=== PATIENT | male | born 1950 | race Caucasian/White ===

== ENCOUNTER 2017-06-20 08:50 | Outpatient (CLI) | payer MEDICARE, OTHER ==
--- NOTE | 2017-06-20 11:29 | CT ---
CT ANGIO CHEST WITH AND WITHOUT CONTRAST: HISTORY: Exam is performed for coronary mapping and for preoperative evaluation prior to Watchman procedure. TECHNIQUE: Multiple axial tomograms obtained through the chest with attention to the heart pre and post IV cont rast. This is not a coronary artery angio study. FINDINGS: The coronary arteries have a normal origin. The right coronary is very small on this study. The left main extends over a length of approximately 1.2 cm. There is calcification in the proximal LAD and extending through the mid and distal LAD. Calcified plaque is also seen in the proximal ci rcumflex. Assessment of coronary stenosis cannot be made on this study. There is increased density seen in the left atrial appendage. Left atrial appendage densities are r ecorded at 101 Hounsfield units, and the density of the left atrium is recorded at 53 Hounsfield uni ts. This would suggest thrombus within the left atrial appendage. The aortic measurements are normal. The aortic root, at the sinus of Valsalva, is measured at 3.7 c m. The ascending aorta is measured at 3.3 cm. The pulmonary arteries are poorly opacified on this exam. I cannot exclude pulmonary emboli on this study. The visualized lung sheridan reveal a 3 to 4 mm nodule in the right apex. There are two or three smal l nodules in the right upper lobe, peripherally, measuring in the 3 mm range. Small, pleural-based calcified nodule in the left upper lobe, measuring in the 3 mm range. Mild pleural thickening. No adenopathy. There are calcified right hilar lymph nodes. IMPRESSION: 1. Increased density of the left atrial appendage suggests thrombus. 2. Coronary artery calcifications, as described above. Very small right coronary artery. 3. Calcified hilar lymph nodes and small pleural-based calcified granuloma on the left. This is in dicative of a prior granulomatous process. 4. There are other noncalcified small nodules seen in the right upper lobe, as described. Mild ple ural thickening and parenchymal scarring posteriorly, in the right lung base. POS: [facility]
[2017-06-20] MEDS ORDERED: Iopamidol 370 76% 100 ML VIAL ONE (15:59)
== END 2017-06-20 08:51 | disposition home or self-care (01) ==
LOC: CT 08:50
PROVIDERS: ATTEND Internal Medicine Cardiovascular Disease
DX: I48.0 Paroxysmal atrial fibrillation (principal); R91.8 Other nonspecific abnormal finding of lung field
CPT/HCPCS: 71275

== ENCOUNTER → 2017-08-29 | Day surgery (SDC) | payer MEDICARE, OTHER ==
[2017-08-28 14:10] VITALS: BMI 32.6
[~2017-08-29] MED LIST: Diprivan 40 ML ONE; Lidocaine 1% PF 5 ML VIAL ONE
--- NOTE | 2017-08-29 13:30 | ECHO ---
TRANSESOPHAGEAL ECHOCARDIOGRAM: DATE OF PROCEDURE: 08/29/17 INDICATION: Paroxysmal atrial fibrillation. DESCRIPTION OF PROCEDURE: The patient was taken to the PACU. The patient was sedated by anesthesiology. A transesophageal probe was placed in the distal esophagus and stomach. Echocardiographic images were obtained. The transesophageal probe was removed. FINDINGS: 1. Normal left ventricular systolic function. 2. Left ventricle not dilated. 3. Mild left atrial enlargement. 4. Normal mitral and aortic valves. 5. Moderate mitral regurgitation. 6. Mild tricuspid regurgitation. 7. The Lariat device is well positioned in the left atrial appendage, with noted 1 mm leak 8. Atherosclerotic debris in the descending aorta. IMPRESSION: Well positioned Lariat device with a very small 1 mm leak noted.
== END ==
LOC: CCL 06:00
PROVIDERS: ATTEND Internal Medicine Cardiovascular Disease
DX: I48.0 Paroxysmal atrial fibrillation (principal); G47.33 Obstructive sleep apnea (adult) (pediatric); I10 Essential (primary) hypertension; E03.9 Hypothyroidism, unspecified; I25.10 Atherosclerotic heart disease of native coronary artery without angina pectoris; K21.9 Gastro-esophageal reflux disease without esophagitis; K04.7 Periapical abscess without sinus; I34.0 Nonrheumatic mitral (valve) insufficiency; I07.1 Rheumatic tricuspid insufficiency; Z85.528 Personal history of other malignant neoplasm of kidney; Z79.899 Other long term (current) drug therapy; Z79.82 Long term (current) use of aspirin; Z88.1 Allergy status to other antibiotic agents; Z90.5 Acquired absence of kidney; Z95.0 Presence of cardiac pacemaker; Z98.890 Other specified postprocedural states; Z99.89 Dependence on other enabling machines and devices
CPT/HCPCS: 93005; 93010; 93312; J2001; J2704

== ENCOUNTER 2017-09-06 20:23 | Emergency (ER) | payer MEDICARE, OTHER ==
[2017-09-06 21:18] LABS: #Basophils 0.1 thou/uL (0.0-0.2); #Eosinphils 0.6 thou/uL (0.0-0.7); #Lymphocytes 1.2 thou/uL (1.20-3.40); #Monocytes 0.6 thou/uL (0.11-0.59); #Neutrophils 4.6 thou/uL (1.40-6.50); %Basophils 0.9 % (0.0-1.0); %Eosinophils 8.2 % (0.0-10.0); %Lymphocytes 16.4 % (21.0-51.0); %Monocytes 8.7 % (0.0-10.0); %Neutrophils 65.8 % (42.0-75.0); Hemoglobin 14.2 g/dL (14.0-18.0); Mean Corpuscular Hemoglobin 26.9 pg (27.0-31.0); Mean Corpuscular Volume 79.2 fl (80.0-94.0); Mean Platelet Volume 7.4 fL (7.4-10.4); Platelet Count 200 thou/uL (130-400); RBC Distribution Width 14.3 % (11.5-14.5); Red Blood Cell (RBC) Count 5.29 mill/uL (4.70-6.10)
[2017-09-06 21:39] LABS: ALT (SGPT) 11 U/L (8-55); AST (SGOT) 14 U/L (5-34); Albumin 4.1 g/dL (3.4-4.8); Alkaline Phosphatase 102 U/L (40-150); Anion Gap 14 mmol/L (10-20); BUN (Urea Nitrogen) 15 mg/dL (8.4-25.7); Bilirubin, Total 0.4 mg/dL (0.2-1.2); Calc. Creatinine Clearance 0 mL/min (70-130); Calcium 9.4 mg/dL (7.8-10.44); Carbon Dioxide 20 mmol/L (23-31); Chloride 97 mmol/L (98-107); Estimated GFR-MDRD 50; Globulin 2.4 g/dL (2.4-3.5); Glucose 95 mg/dL (80-115); Potassium 3.6 mmol/L (3.5-5.1); Protein, Total 6.5 g/dL (5.8-8.1); Sodium 127 mmol/L (136-145)
[2017-09-06 21:42] LABS: CKMB 2.4 ng/mL (0-6.6); Troponin I 0.019 ng/mL (< 0.028)
--- NOTE | 2017-09-22 14:14 | EKG ---
Test Reason : Blood Pressure : / mmHG Vent. Rate : 061 BPM Atrial Rate : 086 BPM P-R Int : 000 ms QRS Dur : 102 ms QT Int : 442 ms P-R-T Axes : 000 059 072 degrees QTc Int : 444 ms Atrial-paced rhythm with prolonged AV conduction Abnormal ECG Confirmed by MORALES DAMON, ALANNA ([id number]), purchasing expeditor MEGHAN ALCOCER ([id number]) on 09/22/2017 2:13:51 PM Referred By: Confirmed By:ALANNA NIELSEN MD
== END 2017-09-06 22:55 | disposition home or self-care (01) ==
LOC: ERS 20:23
DX: I49.3 Ventricular premature depolarization (principal); E87.1 Hypo-osmolality and hyponatremia; I11.0 Hypertensive heart disease with heart failure; I50.9 Heart failure, unspecified; I48.91 Unspecified atrial fibrillation; M10.9 Gout, unspecified; G47.30 Sleep apnea, unspecified; E03.9 Hypothyroidism, unspecified; E78.5 Hyperlipidemia, unspecified; Z79.82 Long term (current) use of aspirin; Z79.01 Long term (current) use of anticoagulants; Z85.528 Personal history of other malignant neoplasm of kidney; Z79.899 Other long term (current) drug therapy
CPT/HCPCS: 36415; 80053; 82553; 84484; 85025; 93005; 96360

== ENCOUNTER 2017-10-17 14:43 | Outpatient (CLI) | payer MEDICARE, OTHER ==
--- NOTE | 2017-10-17 15:37 | RAD ---
TWO VIEWS RIGHT KNEE 10/17/17 HISTORY: Right knee pain. FINDINGS: There is tricompartment osteophytosis. There is no significant joint space narrowing appreciated. No fracture or dislocation is identified. Vascular calcifications are seen posterior to the knee. IMPRESSION: 1. Osteoarthritis without acute osseous abnormality. No fracture or dislocation is seen. 2. Prominent vascular calcifications. POS: [facility]
== END 2017-10-17 14:44 | disposition home or self-care (01) ==
LOC: RAD 14:43
PROVIDERS: ATTEND Internal Medicine
DX: M25.561 Pain in right knee (principal); M17.11 Unilateral primary osteoarthritis, right knee

== ENCOUNTER 2017-12-25 07:52 | Outpatient (CLI) | payer MEDICARE, OTHER | END 2017-12-25 07:53 | disposition home or self-care (01) | LOC: BICMAMMO 07:52 | PROVIDERS: ATTEND Internal Medicine Rheumatology | DX: Z13.820 Encounter for screening for osteoporosis (principal); M85.852 Other specified disorders of bone density and structure, left thigh; M85.851 Other specified disorders of bone density and structure, right thigh | CPT/HCPCS: 77080 ==

== ENCOUNTER 2017-12-25 11:21 | Outpatient (CLI) | payer MEDICARE, OTHER ==
--- NOTE | 2017-12-25 15:37 | MRI ---
MR OF THE RIGHT KNEE WITHOUT CONTRAST 12/25/17 INDICATION: Right knee pain for six months with pain while walking. COMPARISON: None. TECHNIQUE: Multiplanar and multisequence MR images were obtained of the right knee without IV contrast. The christ ent reportedly had a [employer] Advisa pacemaker. FINDINGS: There is severe chondrosis involving the medial femorotibial joint compartment with multiple areas of subchondral cyst formation. There is a prominent amount of subchondral edema involving the anterior aspect of the medial tibial plateau. There are small marginal osteophytes affecting all major compart ments. The ACL, PCL, MCL, and LCLC are intact. The extensor mechanism is intact. There is a small semimembra nosus - medial gastrocnemius popliteal cyst. The medial and lateral menisci are intact. There is inc reased intrinsic T2 signal in the medial meniscus body. IMPRESSION: 1. Mild to moderate osteoarthrosis with prominent subchondral edema involving the medial tibial plateau likely related to areas of full thickness articular cartilage thinning and reactive edema. No visible fracture line is grossly evident. 2. Mucoid degeneration of the medial meniscus. POS: [facility]
== END 2017-12-25 11:22 | disposition home or self-care (01) ==
LOC: MRI 11:21
PROVIDERS: ATTEND Internal Medicine
DX: M25.561 Pain in right knee (principal); M17.11 Unilateral primary osteoarthritis, right knee

== ENCOUNTER 2018-01-03 06:03 | Day surgery (SDC) | payer MEDICARE, OTHER ==
[2018-01-02 10:08] VITALS: BMI 31.9
[2018-01-03 07:03] LABS: #Eosinphils 0.3 thou/uL (0.0-0.7); #Lymphocytes 0.7 thou/uL (1.20-3.40); #Monocytes 0.5 thou/uL (0.11-0.59); %Basophils 0.5 % (0.0-1.0); %Eosinophils 5.9 % (0.0-10.0); %Lymphocytes 13.1 % (21.0-51.0); %Monocytes 8.8 % (0.0-10.0); %Neutrophils 71.7 % (42.0-75.0); Hemoglobin 13.1 g/dL (14.0-18.0); Mean Corpuscular HGB CONC 34.4 g/dL (32.0-36.0); Mean Corpuscular Hemoglobin 28.3 pg (27.0-31.0); Mean Corpuscular Volume 82.3 fl (80.0-94.0); Mean Platelet Volume 6.7 fL (7.4-10.4); Platelet Count 161 thou/uL (130-400); RBC Distribution Width 13.2 % (11.5-14.5); Red Blood Cell (RBC) Count 4.62 mill/uL (4.70-6.10); White Blood Cell (WBC) Count 5.6 thou/uL (4.8-10.8)
[2018-01-03 07:18] LABS: PTT 27.5 SEC (22.9-36.1); Prothrombin Time 12.9 SEC (12.0-14.7)
[2018-01-03 07:24] LABS: Anion Gap 15 mmol/L (10-20); BUN (Urea Nitrogen) 15 mg/dL (8.4-25.7); Calc. Creatinine Clearance 68 mL/min (70-130); Calcium 8.6 mg/dL (7.8-10.44); Carbon Dioxide 19 mmol/L (23-31); Chloride 98 mmol/L (98-107); Estimated GFR-MDRD 51; Glucose 101 mg/dL (80-115); Potassium 3.5 mmol/L (3.5-5.1); Sodium 128 mmol/L (136-145)
[2018-01-03] MEDS ORDERED: PROPOFOL 40 ML ONE (07:44)
[2018-01-03] MEDS ORDERED: PROPOFOL 200 MG/20 ML VIAL ONE (09:42)
--- NOTE | 2018-01-03 16:41 | ECHO ---
67-year-old gentleman with paroxysmal atrial fibrillation and status post a Lariat procedure. DESCRIPTION OF PROCEDURE: The patient was taken to PACU. The patient stated by anesthesiology. Transesophageal probe was place d in the distal esophagus and stomach. Echocardiographic images were obtained the transesophageal pr obe was removed. FINDINGS: 1. Normal left ventricular systolic function. 2. Left atrial enlargement. 3. Normal mitral and aortic valves. 4. Moderate mitral regurgitation. 5. Mild tricuspid regurgitation. 6. Trivial aortic. 7. The Lariat procedure is sealed with no significant leak noted. 8. Atherosclerotic debris in the aorta. IMPRESSION: Lariat device which appears to be well sealed with no significant leak.
== END 2018-01-03 09:25 | disposition home or self-care (01) ==
LOC: CCL 06:03
PROVIDERS: ATTEND Internal Medicine Cardiovascular Disease
DX: I48.91 Unspecified atrial fibrillation (principal); R55 Syncope and collapse; R53.81 Other malaise; I13.10 Hypertensive heart and chronic kidney disease without heart failure, with stage 1 through stage 4 chronic kidney disease, or unspecified chronic kidney disease; E78.00 Pure hypercholesterolemia, unspecified; E11.22 Type 2 diabetes mellitus with diabetic chronic kidney disease; I87.2 Venous insufficiency (chronic) (peripheral); I28.8 Other diseases of pulmonary vessels; I74.3 Embolism and thrombosis of arteries of the lower extremities; N18.3 Chronic kidney disease, stage 3 (moderate); Z98.890 Other specified postprocedural states; Z95.0 Presence of cardiac pacemaker; Z79.82 Long term (current) use of aspirin; Z79.899 Other long term (current) drug therapy
CPT/HCPCS: 36415; 80048; 85025; 85610; 85730; 93005; 93010; 93312; J2704

== ENCOUNTER 2018-02-05 07:49 | Outpatient (CLI) | payer MEDICARE, OTHER ==
--- NOTE | 2018-02-05 10:55 | CT ---
CT OF TEMPORAL BONES: Date: 02-05-18 Comparison: None. History: Otitis externa, history of external auditory canal surgery, January 2017 for CSF leak. The christ ent reports pain and drainage. Technique: Serial axial CT imaging obtained at 0.63 mm intervals through the temporal bones without c ontrast. Coronal reformatted imaging obtained. FINDINGS: The imaged brain parenchyma appears grossly unremarkable. There is atherosclerotic calcification of t he cavernous carotid arteries. Imaged paranasal sinuses appear well aerated. Patient appears status p ost bilateral paranasal sinus surgery, incompletely characterized on this examination. Left temporal bone: The internal auditory canal, cochlea, vestibule, vestibular aqua duct, and vesicu lar canals appear unremarkable. Course of the facial nerve is normal. Mastoid air cells and tympanic cavity is well aerated. External auditory canal grossly unremarkable. Prussak's space appears clear. The scutum appears sharp with no evidence for scutal erosion. Ossicles appear intact. Vascular foramina appear grossly unremarkable. No discrete focus of dehiscense seen. Right temporal bone: The internal auditory canal, cochlea, vestibule, vestibular aqua duct, and semic ircular canals appear unremarkable. There is evidence of prior mastectomy. There is small volume fluid in the mastoid bowl with opacified mastoid air cells noted inferiorly. There is also gas within the mastoid bulb. There is osseous erosion involving the interior aspect of the mastoid air cells/posterior osseous ext ernal auditory canal. This focal area of posterior osseous external auditory canal erosion/dehiscense measures 3 mm in transverse dimension as is seen on axial image 41. There is near complete opacification of the hypotympanum, the mesotympanum, and the epitympanum with soft tissue density filling the facial nerve recess and sinus tympanum on either side of the parietal eminence. No definite scutal erosion seen. Prussak's space is opacified. The tympanic membrane appears retracted. No obvious ossicular erosion is seen. On the coronal imaging there are a few foci concerning for osseous dehiscense. This includes the ante rior aspect of the tegmen tympani on coronal image 117 measuring 1-2 mm in transverse dimension. Ther e may be areas of dehiscense involving the posterior aspect of the epitympanum along the ventral aspe ct of the superior margin of the mastoid air cells best seen on coronal image 107 measuring 3-4 mm in transverse dimension. In addition, there is marked thinning of the bone with possible dehiscense inv olving the tegmen mastoideum on coronal image 101 measuring 6 mm in transverse dimension. Vascular fo ramina appear grossly unremarkable. IMPRESSION: 1. Grossly unremarkable left temporal bone. 2. Evidence of mastoidectomy on the right. There is gas and fluid within the mastoid bowel. There are areas concerning for osseous dehiscense involving the posterior osseous wall of the tax auditor y canal as well as the region of the tegmen mastoideum and tegmen tympani. There is nonspecific soft tissue nearly completely opacifying the hypotympanum, epitympanum, and mesotympanum. This could be in flammatory/infectious in nature or could be related to cholesteatoma. However, no scutal erosion or o ssicular erosion is seen. POS: [facility]
== END 2018-02-05 07:50 | disposition home or self-care (01) ==
LOC: CT 07:49
PROVIDERS: ATTEND Specialist
DX: H60.90 Unspecified otitis externa, unspecified ear (principal); R93.0 Abnormal findings on diagnostic imaging of skull and head, not elsewhere classified; Z98.890 Other specified postprocedural states
CPT/HCPCS: 70480

== ENCOUNTER 2018-06-20 09:37 | Outpatient (CLI) | payer MEDICARE, OTHER ==
--- NOTE | 2018-06-20 11:42 | RAD ---
RIGHT HIP TWO VIEWS: HISTORY: Right hip pain. FINDINGS: Mild degenerative changes are present. No fracture, dislocation, or bony destruction is identified. There are vascular calcifications. POS: [facility]
== END 2018-06-20 09:38 | disposition home or self-care (01) ==
LOC: BICRAD 09:37
PROVIDERS: ATTEND Physician Assistant
DX: M25.551 Pain in right hip (principal); M16.11 Unilateral primary osteoarthritis, right hip; M25.851 Other specified joint disorders, right hip
CPT/HCPCS: 36415; 80053; 80061; 84443

== ENCOUNTER 2018-10-16 15:52 | Outpatient (CLI) | payer MEDICARE, OTHER ==
--- NOTE | 2018-10-16 16:43 | RAD ---
RIGHT HAND 3 VIEWS: Date: 10/16/18 HISTORY: Hand pain. FINDINGS: There are moderate osteoarthritic changes of the hand. There are degenerative changes of the distal i nterphalangeal joints, as well as metacarpophalangeal joints, and marked osteoarthritic change of the first carpometacarpal joint space and radiocarpal joint. There are also fairly extensive vascular ca lcifications. IMPRESSION: 1. Moderately severe osteoarthritic changes of the hand and wrist. 2. Atherosclerosis. POS: [facility]
--- NOTE | 2018-10-16 17:04 | RAD ---
CERVICAL SPINE SERIES 3 VIEWS: Date: 10/16/18 HISTORY: Neck pain, numbness and tingling in both arms. FINDINGS: Vertebral bodies are normal in height. There are degenerative osteophytes without significant disc na rrowing. Moderate degenerative facet changes are seen. No soft tissue swelling. Carotid bulb calcific ations are present. IMPRESSION: Moderate arthritic changes of the spine. Changes are more pronounced in the facet region. POS: [facility]
--- NOTE | 2018-10-16 17:07 | RAD ---
RIGHT SHOULDER THREE VIEWS: HISTORY: Pain. COMPARISON: None. FINDINGS: The glenohumeral joint space is preserved. No fracture or dislocation. There is mild sclerosis of t he greater tuberosity. Correlate for rotator cuff tendinopathy. IMPRESSION: No fracture or dislocation. POS: [facility]
--- NOTE | 2018-10-16 17:07 | RAD ---
LEFT HAND 3 VIEWS: Date: 10/16/18 HISTORY: Hand pain, no injury. FINDINGS: There are fairly extensive vascular calcifications noted. There are osteoarthritic type changes of th e hand. Changes are related to the first carpometacarpal joint, triscaphe, and radiocarpal joint spac es. There are also some very mild changes of the interphalangeal joints and metacarpophalangeal joint s, most marked at the third metacarpophalangeal joint. IMPRESSION: 1. Osteoarthritic changes of the hand and wrist. Changes are most pronounced in the wrist region. 2. Extensive atherosclerosis. POS: [facility]
--- NOTE | 2018-10-16 17:08 | RAD ---
LEFT SHOULDER THREE VIEWS: 10/16/18 HISTORY: Left shoulder pain. Pacer device is present. Minimal arthritic changes of the shoulder are noted. There is some subchondr al bony change of the greater tuberosity. There is no signs of fracture IMPRESSION: Minimal arthritic changes of the shoulder. POS: [facility]
== END 2018-10-16 15:53 | disposition home or self-care (01) ==
LOC: BICRAD 15:52
PROVIDERS: ATTEND Internal Medicine
DX: M25.542 Pain in joints of left hand (principal); M25.512 Pain in left shoulder; M25.511 Pain in right shoulder; M25.541 Pain in joints of right hand; M54.2 Cervicalgia; M19.012 Primary osteoarthritis, left shoulder; M19.032 Primary osteoarthritis, left wrist; M19.031 Primary osteoarthritis, right wrist; M19.042 Primary osteoarthritis, left hand; M19.041 Primary osteoarthritis, right hand; I70.90 Unspecified atherosclerosis; M47.812 Spondylosis without myelopathy or radiculopathy, cervical region
CPT/HCPCS: 72040

== ENCOUNTER 2018-11-28 13:32 | Outpatient (CLI) | payer MEDICARE, OTHER ==
--- NOTE | 2018-11-28 14:13 | CT ---
Temporal bone CT. HISTORY: Eustachian tube dysfunction. Axial images were obtained with coronal reconstructions. Comparison made to previous exam from 02/05/2018. The left external auditory canal is unremarkable. The left hypo-, AP and mesotympanum is unremarkable. The left middle ear ossicles intact. No evidence of left middle ear soft tissue thickening or abnormality seen. The left cochlea, vestibule and semicircular canals are intact. Left mastoid air cells well aerated. The patient's had right-sided mastoidectomy. There is surgical resection of the right posterior aspec t of the external auditory canal. Surgical packing seen in the right mastoid region. There is thickening of the right tympanic membrane. The right malleus, incus and stapes are unremarka ble. No evidence of canalicular erosion seen in the right facial nerve canal. The right scutum is unremarkable. The right and left jugular bulbs are unremarkable. IMPRESSION: Right posterior external auditory canal surgical changes and decompression of the anterio r aspect of the right mastoid air cells. Soft tissues seen previously in the right ap and meso tympanum is no longer visible. The right middle ear at this time as well aerated.
== END 2018-11-28 13:33 | disposition home or self-care (01) ==
LOC: BICCT 13:32
PROVIDERS: ATTEND Otolaryngology Otology & Neurotology
DX: H69.80 Other specified disorders of Eustachian tube, unspecified ear (principal); Z98.890 Other specified postprocedural states
CPT/HCPCS: 70480

== ENCOUNTER 2018-12-30 09:25 | Outpatient (CLI) | payer MEDICARE, OTHER ==
[2018-12-30] MEDS ORDERED: Sodium Chloride 0.9% (PF) 10 ML VIAL ONE (10:00)
[2018-12-30] MEDS ORDERED: Lidocaine 1% PF 10 ML AMP ONE (10:00)
[2018-12-30] MEDS ORDERED: Iopamidol 300 61% 50 ML VIAL FS ONE (10:00)
[2018-12-30] MEDS ORDERED: EPINEPHrine 1 MG/ML AMP ONE (10:00)
--- NOTE | 2018-12-30 10:29 | CT ---
CT Cervical Spine WO Con History: [M 25.511 cervical stenosis] Comparison: None. Findings: Lung apices are clear. Paraspinal soft tissues are unremarkable. Dense calcifications of th e carotid bulbs. Relative atrophy of the left lobe of the thyroid. There is narrowing of the atlantodental interval. The occipital condyles are intact. No acute fractur e or malalignment. Levels are as follows: C2/C3: Moderate left facet arthropathy. Mild uncinate process hypertrophy. No significant neural fora ny or spinal canal narrowing. C3/C4: Mild degenerative disc space height loss. Some low-grade circumferential disc bulge. Moderate bilateral facet arthrosis. Mild left neural foraminal narrowing. C4/C5: Moderate to severe left facet arthropathy. Degenerative 1 mm anterolisthesis. Low-grade circum ferential disc bulge. Mild left neural foraminal narrowing. C5/C6: Low-grade uncinate process hypertrophy. Moderate to severe left facet arthrosis. No significan t neural foraminal or spinal canal narrowing. C6/C7: Mild uncinate process hypertrophy. Moderate left facet arthropathy. No significant neural fora ny or spinal canal narrowing. Impression: Moderate degenerative changes. No spinal canal narrowing appreciated.
--- NOTE | 2018-12-30 11:52 | RAD ---
LEFT SHOULDER ARTHROGRAM WITH FLUOROSCOPIC GUIDANCE: HISTORY: Left shoulder pain. EXPOSURE: 0.8 minutes. 95.1 microgray per m2 FINDINGS: Three view left shoulder fabric cutter radiograph does not demonstrate any fracture-dislocation. Erosive andres nges of the greater tuberosity are noted. Incompletely evaluated left-sided transvenous pacing device. Successful administration of contrast into the left shoulder. A total of 15 cc of Isovue-M 300 contr ast was administered into the joint space. No immediate or postprocedural complications. TECHNIQUE: Consent obtained to perform a left shoulder arthrogram with fluoroscopic guidance. The left shoulder was prepped and draped in sterile fashion, and 1% lidocaine, buffered with sodium bicarbonate, was used for local anesthesia. Under fluoroscopic guidance, a 22-gauge spinal needle was advanced into t he left shoulder joint space. A total of 15 cc of contrast was administered. No immediate or postprocedure complications. IMPRESSION: Successful left shoulder arthrogram. Transcribed Date/Time: 12/30/2018 12:40 PM
--- NOTE | 2018-12-30 11:55 | RAD ---
RIGHT SHOULDER ARTHROGRAM WITH FLUOROSCOPY: HISTORY: Right shoulder pain. EXPOSURE: 0.8 minutes. 146.6 microgray per m2. FINDINGS: Three view right shoulder asian art curator radiograph demonstrates a cephalad location of the humeral head, with respect to the glenoid, suggesting a complete rotator cuff tear. No evidence of fracture. Successful right shoulder arthrogram with fluoroscopic guidance. A total of 15 cc of Isovue 300 cont rast was administered into the joint space. No immediate or postprocedure complications. TECHNIQUE: Consent obtained to perform a right shoulder arthrogram. The right shoulder was prepped and draped i n a sterile fashion, and 1% lidocaine, buffered with sodium bicarbonate, was used for local anesthesia. Under fluoroscopic guidance, a 22-gauge spinal needle was advanced into the right should er joint space. A total of 15 cc of contrast was administered. No immediate or post procedure complications. IMPRESSION: Successful right shoulder arthrogram. Transcribed Date/Time: 12/30/2018 12:44 PM
--- NOTE | 2018-12-30 12:05 | CT ---
CT Upper Ext Rt W Con History: [Shoulder pain. M 54.12. M 25.511.] Comparison: Radiograph October 16, 2018 Findings: Biceps tendon: There is absent biceps tendon with empty bicipital groove. Small stump of fiber of the intra-articular tendon. Rotator cuff: Full-thickness full width supraspinatus and infraspinatus tendon tears. There is also f ull-thickness rupture of the craniad one half fibers of the subscapularis. Labrum: Loss of volume of the anterior and superior labrum. Bones: No fracture. No malalignment. Moderate degenerative disease of the acromioclavicular joint. Th ere is extension of intraarticular contrast into the acromioclavicular joint. Impression: 1. Full-thickness full width supraspinatus and infraspinous tendon ruptures with retraction of the te ndon medial to the glenoid. 2. Full-thickness rupture subscapularis craniad one half fibers. 3. Ruptured biceps tendon. 4. Communication of the glenohumeral joint with the acromioclavicular joint.
--- NOTE | 2018-12-30 12:10 | CT ---
CT Upper Ext Lt W Con History: [Pain. And 25.511. M 25.512.] Comparison: Shoulder radiograph September 2018 Findings: Partially calcified pleural nodule left upper lobe likely benign. There appears to be occlu ding device the left atrial appendage. Biceps tendon: There is interstitial type tearing of the extra articular and intra-articular biceps t endon. Rotator cuff: Full-thickness full width supraspinatus tendon tear from the footprint retracted to the mid humeral head. Moderate tendinosis supraspinatus tendon without full-thickness rupture. Labrum: Tear of the posterior labrum. Bones: No acute fracture or malalignment. Moderate degenerative disease acromio clavicular joint. Soft tissues: Numerous bodies within the subacromial/subdeltoid bursa. Muscles: Greater than 50% atrophy of the supraspinous muscle. Impression: 1. Full-thickness full width supraspinatus tendon tear from the footprint retracted to the mid unique l head present 2. Numerous bodies within the subacromial/subdeltoid bursa. 3. Likely posterior labral tearing. 4. Greater than 50% atrophy of the supraspinatus muscle. Deltoid musculature is intact. Fibroid interstitial type tearing of the extricate their and intra-articular biceps tendon.
== END 2018-12-30 09:26 | disposition home or self-care (01) ==
LOC: CT 09:25
PROVIDERS: ATTEND Orthopaedic Surgery Hand Surgery
DX: M25.511 Pain in right shoulder (principal); M25.512 Pain in left shoulder; M48.02 Spinal stenosis, cervical region; M75.102 Unspecified rotator cuff tear or rupture of left shoulder, not specified as traumatic; M75.101 Unspecified rotator cuff tear or rupture of right shoulder, not specified as traumatic; S43.491A Other sprain of right shoulder joint, initial encounter; M19.011 Primary osteoarthritis, right shoulder; M47.812 Spondylosis without myelopathy or radiculopathy, cervical region
CPT/HCPCS: 23350; 72125; J0171; J3490; Q9967

== ENCOUNTER 2019-01-21 00:15 | Outpatient (CLI) | payer MEDICARE, OTHER ==
[2019-01-21 14:25] LABS: #Eosinphils 0.3 thou/uL (0.0-0.7); #Lymphocytes 1.3 thou/uL (1.20-3.40); #Monocytes 0.5 thou/uL (0.11-0.59); #Neutrophils 3.8 thou/uL (1.40-6.50); %Basophils 0.2 % (0.0-1.0); %Eosinophils 4.7 % (0.0-10.0); %Lymphocytes 22.2 % (21.0-51.0); %Monocytes 7.8 % (0.0-10.0); Hemoglobin 13.9 g/dL (14.0-18.0); Mean Corpuscular HGB CONC 32.5 g/dL (32.0-36.0); Mean Corpuscular Hemoglobin 26.5 pg (27.0-31.0); Mean Corpuscular Volume 81.6 fL (78.0-98.0); Mean Platelet Volume 7.2 fL (7.4-10.4); Platelet Count 148 thou/uL (130-400); RBC Distribution Width 14.4 % (11.5-14.5); Red Blood Cell (RBC) Count 5.26 mill/uL (4.70-6.10); White Blood Cell (WBC) Count 5.8 thou/uL (4.8-10.8)
--- NOTE | 2019-01-22 20:25 | EKG ---
Test Reason : Blood Pressure : / mmHG Vent. Rate : 065 BPM Atrial Rate : 065 BPM P-R Int : 230 ms QRS Dur : 094 ms QT Int : 418 ms P-R-T Axes : 080 066 041 degrees QTc Int : 434 ms Electronic atrial pacemaker Anterior infarct , age undetermined Abnormal ECG When compared with ECG of 03-JAN-2018 06:51, QRS duration has decreased Anterior infarct is now Present Confirmed by REED DAMON, DR. Pham ([id number]) on 01/22/2019 8:24:45 PM Referred By: YAHIR Confirmed By:DR. Vero MCBRIDE MD
== END 2019-01-21 00:16 | disposition home or self-care (01) ==
LOC: LABBT 00:15
PROVIDERS: ATTEND Orthopaedic Surgery Hand Surgery
DX: Z01.818 Encounter for other preprocedural examination (principal); G56.01 Carpal tunnel syndrome, right upper limb
CPT/HCPCS: 85025; 93005; 93010

== ENCOUNTER 2019-01-24 10:43 | Day surgery (SDC) | payer MEDICARE, OTHER ==
[2019-01-21 13:28] VITALS: BMI 34.2
[2019-01-24] MEDS ORDERED: Bacitracin Zinc Ointment 30 gm TUBE ONE (14:37)
[2019-01-24] MEDS ORDERED: Betamet Acet/Betamet Na Ph 30 MG/5 ML VIAL ONE (14:37)
[2019-01-24] MEDS ORDERED: Bupivacaine PF 0.5% 30 ML VIAL ONE (14:37)
[2019-01-24] MEDS ORDERED: Levofloxacin 500 mg/D5W 100 ml Premix Bag ONE (14:42)
[2019-01-24] MEDS ORDERED: Fentanyl 100 MCG/2 ML VIAL ONE (14:54)
[2019-01-24] MEDS ORDERED: Ketorolac Tromethamine 30 MG/ML VIAL ONE (16:17)
--- NOTE | 2019-01-27 14:22 | OP ---
DATE OF PROCEDURE: 01/24/2019 PREOPERATIVE DIAGNOSIS: Right carpal tunnel syndrome. POSTOPERATIVE DIAGNOSIS: Right carpal tunnel syndrome. FINDINGS: Very tight transverse carpal ligament with stippling over 5 mm area without allograft formation. PROCEDURES PERFORMED: 1. Right carpal tunnel release. 2. Celestone injection into the carpal canal. TOURNIQUET TIME: 11 minutes. BLOOD LOSS: Less than 5 mL. INJECTABLES: Injected 20 mL total of 0.5% Marcaine, 10 before incision and 10 after. DESCRIPTION OF PROCEDURE: After successful anesthesia as listed above general LMA contact and the augmented Marcaine, the patient had the limb exsanguinated, tourniquet inflated to 250 mmHg pressure. We made an incision beginning at Torres's cardinal line in line with the ring finger as far proximal as 5 mm distal to the volar wrist flexion crease. We carried this through skin and subcutaneous tissue, identified the palmaris longus junction with the transverse carpal ligament, into the transcarpal ligament midline along the palmaris. We carried this from the midportion distally and freed up the nerve without any complication. We then visualized the transcarpal carpal ligament from the midportion proximally using combination of Scurry blade and tenotomy scissors and freed it completely. We placed Celestone in the area where the 5-6 mm of stippling was seen. We then released the tourniquet and obtained hemostasis. Wound was closed in usual fashion with interrupted 4-0 nylon in mattress pattern. Bulky dressing applied. The patient left the operating room without evidence of anesthetic or operative complication. Job ID: [id number]
== END 2019-01-24 18:00 | disposition home or self-care (01) ==
LOC: SDC 10:43
PROVIDERS: ATTEND Orthopaedic Surgery Hand Surgery
PROC: 01N50ZZ Release Median Nerve, Open Approach (ICD-10-PCS; principal; 2019-01-24)
DX: G56.03 Carpal tunnel syndrome, bilateral upper limbs (principal); M48.02 Spinal stenosis, cervical region; M75.121 Complete rotator cuff tear or rupture of right shoulder, not specified as traumatic; M19.041 Primary osteoarthritis, right hand; M19.042 Primary osteoarthritis, left hand; E03.9 Hypothyroidism, unspecified; M10.9 Gout, unspecified; M81.0 Age-related osteoporosis without current pathological fracture; E78.00 Pure hypercholesterolemia, unspecified; I48.91 Unspecified atrial fibrillation; I12.9 Hypertensive chronic kidney disease with stage 1 through stage 4 chronic kidney disease, or unspecified chronic kidney disease; N18.9 Chronic kidney disease, unspecified; G47.33 Obstructive sleep apnea (adult) (pediatric); I49.5 Sick sinus syndrome; I25.10 Atherosclerotic heart disease of native coronary artery without angina pectoris; Z95.1 Presence of aortocoronary bypass graft; Z98.890 Other specified postprocedural states; Z99.89 Dependence on other enabling machines and devices; Z88.1 Allergy status to other antibiotic agents; Z79.82 Long term (current) use of aspirin; Z79.899 Other long term (current) drug therapy
CPT/HCPCS: J0702; J1885; J1956; J3010; S0020

== ENCOUNTER 2019-04-08 10:06 | Outpatient (CLI) | payer MEDICARE, OTHER ==
--- NOTE | 2019-04-08 10:39 | RAD ---
Exam: Chest 2 views HISTORY: Dyspnea FINDINGS: A left-sided transvenous pacemaker with lead positioned over the right atrium and right cherise tricle. Metallic coil projects over the cardiac silhouette. Pulmonary vessels are normal. Costophrenic angles are clear. Lungs are hyperinflated with chronic andres nges. No masses or consolidation. No pneumothorax. Remote distal thoracic and upper lumbar spine vertebroplasty changes noted IMPRESSION: No acute cardiopulmonary process.
== END 2019-04-08 10:07 | disposition home or self-care (01) ==
LOC: RAD 10:06
PROVIDERS: ATTEND Internal Medicine Pulmonary Disease
DX: R06.00 Dyspnea, unspecified (principal)
CPT/HCPCS: 71046

== ENCOUNTER 2019-06-02 15:57 | Observation (INO) | payer MEDICARE, OTHER ==
[2019-06-02] MEDS ORDERED: Metoprolol Tartrate 5 MG/5 ML VIAL ONE (16:09)
[2019-06-02 16:26] LABS: #Eosinphils 0.1 thou/uL (0.0-0.7); #Lymphocytes 1.2 thou/uL (1.20-3.40); #Monocytes 0.5 thou/uL (0.11-0.59); #Neutrophils 5.7 thou/uL (1.40-6.50); %Basophils 0.5 % (0.0-1.0); %Eosinophils 0.9 % (0.0-10.0); %Lymphocytes 16.2 % (21.0-51.0); %Monocytes 6.5 % (0.0-10.0); %Neutrophils 75.8 % (42.0-75.0); Hemoglobin 13.7 g/dL (14.0-18.0); Mean Corpuscular Hemoglobin 27.6 pg (27.0-31.0); Mean Corpuscular Volume 81.3 fL (78.0-98.0); Mean Platelet Volume 7.4 fL (7.4-10.4); Platelet Count 177 thou/uL (130-400); RBC Distribution Width 14.8 % (11.5-14.5); Red Blood Cell (RBC) Count 4.95 mill/uL (4.70-6.10); White Blood Cell (WBC) Count 7.5 thou/uL (4.8-10.8)
--- NOTE | 2019-06-02 16:29 | RAD ---
Portable frontal chest radiograph: 06/02/2019 COMPARISON: 06/21/2017 HISTORY: Palpitations, chest pain FINDINGS: Stable dual lead transvenous pacing device, inserted via a left-sided approach. Stable hear t and mediastinal contours. No pneumothorax or pleural fluid. No focal consolidation or alveolar edema. Old left-sided rib fractures are noted. IMPRESSION: No acute findings.
[2019-06-02] MEDS ORDERED: Aspirin Chewable 81 MG TAB ONE (16:40)
[2019-06-02] MEDS ORDERED: Nitroglycerin 2% Ointment 1 INCH/1 GM Packet ONE (16:40)
[2019-06-02 16:49] LABS: ALT (SGPT) 15 U/L (8-55); AST (SGOT) 12 U/L (5-34); Albumin 4.6 g/dL (3.4-4.8); Alkaline Phosphatase 78 U/L (40-110); Anion Gap 13 mmol/L (10-20); BUN (Urea Nitrogen) 24 mg/dL (8.4-25.7); Bilirubin, Total 0.5 mg/dL (0.2-1.2); CK (CPK) 61 U/L (30-200); Calc. Creatinine Clearance 0 mL/min (70-130); Calcium 8.9 mg/dL (7.8-10.44); Carbon Dioxide 23 mmol/L (23-31); Chloride 105 mmol/L (98-107); Estimated GFR-MDRD 42; Glucose 105 mg/dL (83-110); Lipase 20 U/L (8-78); Protein, Total 6.6 g/dL (5.8-8.1); Sodium 137 mmol/L (136-145)
--- NOTE | 2019-06-02 17:10 | RAD ---
2 views left hip: 06/02/2019 COMPARISON: None HISTORY: Fall FINDINGS: No fracture or dislocation. No radiopaque foreign body or subcutaneous gas. There is athero sclerotic calcification medial to the proximal left femur. There is mild superior joint space narrowing and mild lateral acetabular osteophyte formation. IMPRESSION: No acute findings.
[2019-06-02] MEDS ORDERED: Nitroglycerin 0.4 MG TAB (25 Tab Bottle) SL PRN (19:52)
[2019-06-02 20:21] LABS: Troponin I 0.019 ng/mL (< 0.028)
--- NOTE | 2019-06-02 21:25 | PDOC.EVN ---
Event Note - Event Note Event Note: [id number]
[2019-06-02] MEDS ORDERED: Enoxaparin Sodium 60 MG/0.6 ML SYRINGE SC SCH (21:30)
[2019-06-02 22:11] VITALS: BMI 33.5
[2019-06-02] MEDS ORDERED: FLU VACC TS2019-20(65YR UP)/PF 180 MCG/0.5 ML SYRINGE IM ONE (22:30)
[2019-06-02 22:38] LABS: Troponin I 0.018 ng/mL (< 0.028)
--- NOTE | 2019-06-03 01:10 | HP ---
CHIEF COMPLAINT: Palpitations and left shoulder pain. HISTORY OF PRESENT ILLNESS: Mr. Burkett is a 69-year-old male with past medical history of congestive heart failure, atrial fibrillation, atrial flutter, renal cell carcinoma, partial nephrectomy, sleep apnea, hypothyroidism, hyperlipidemia, hypertension, deep venous thrombosis, among others, presents to the emergency room with palpitations and left shoulder pain that has been going on for the last 2 days. The patient states that he had a pacemaker placed in April 2017 and had no complications. The patient family reports he saw Dr. Hines in March and was told that he had experienced several rounds of atrial fibrillation. Family reports that he fell yesterday while working outside. The patient is currently not on any blood thinners. He only takes baby aspirin daily. On workup, the patient was found to be in atrial fibrillation with controlled ventricular response, there were frequent ventricular paced complexes. Lab work, the patient had a BNP of 267, creatinine 1.6, hemoglobin 13.7, troponin less than 0.01. Chest x-ray, no acute findings. PAST MEDICAL HISTORY: 1. Atrial fibrillation/atrial flutter. 2. Deep venous thrombosis. 3. Sleep apnea. 4. Hypertension. 5. Cardiac pacemaker. 6. Renal cancer. 7. Hyperlipidemia. PAST SURGICAL HISTORY: 1. Hernia repair. 2. Nasal surgery. 3. Nephrectomy. 4. Cardiac ablation. 5. Pacemaker. 6. Right arm reconstruction. 7. Left kidney ablation. FAMILY HISTORY: Reviewed and noncontributory. SOCIAL HISTORY: The patient drinks socially. No smoking history. HOME MEDICATIONS: Please see home medication reconciliation form for updated medications. ALLERGIES: ALLERGIC TO ERYTHROMYCIN AND KEFLEX. REVIEW OF SYSTEMS: Review of 14 systems negative except what is mentioned in history of present illness. FAMILY HISTORY: Reviewed and noncontributory. PHYSICAL EXAMINATION: GENERAL: The patient is awake, alert, does not appear to be in acute distress. VITAL SIGNS: Blood pressure 110/55, pulse 56, respiratory rate is 18, temperature 98.3, pulse oximetry 98%. HEAD AND NECK: Normocephalic, atraumatic. Neck is supple. No JVD. CHEST: Fair bilateral air entry. HEART: irregularly irregular. ABDOMEN: Soft, nontender. Bowel sounds are present. NEUROLOGIC: Awake, alert, oriented x3. PSYCH: Normal mood. EXTREMITIES: No clubbing, no cyanosis. LABORATORY DATA: As mentioned above in the history of present illness. Chest x-ray as noted above in the history of present illness. ASSESSMENT: 1. Chest pain/shoulder pain. 2. Atrial fibrillation. 3. Cardiac pacemaker. 4. Hypertension. 5. Hyperlipidemia. 6. History of renal carcinoma. 7. Sleep apnea. PLAN: 1. Admit. 2. Telemetry monitoring. 3. Aspirin. 4. Serial cardiac enzymes. 5. 2D echo. 6. We will give the patient one dose of Lovenox tonight, will be reassessed in a.m. 7. Consult patient's storeroom attendant in a.m. for evaluation and further management. 8. Reconcile home medications. 9. DVT prophylaxis, low-molecular weight heparin. 10. Expected length of stay 1 midnight if the patient is stable and further workup negative. Job ID: [id number]
[2019-06-03 08:21] VITALS: TEMP 97.6
[2019-06-03] MEDS ORDERED: Metoprolol Tartrate 25 MG TAB PO SCH (09:00)
[2019-06-03] MEDS ORDERED: Aspirin 325 mg Enteric Coated Tablet PO SCH (09:00)
[2019-06-03 13:23] VITALS: BP 157/80
[2019-06-03] MEDS ORDERED: Propafenone HCl 150 MG TAB PO SCH (14:00)
--- NOTE | 2019-06-03 15:33 | CON ---
DATE OF CONSULTATION: 06/03/2019 ADDITIONAL REFERRING PHYSICIAN: Scott Hines MD HISTORY OF PRESENT ILLNESS: I am seeing Mr. Burkett at our [facility] as an Electrophysiology residential sales consultant. His problems are; 1. Recurrent atrial arrhythmias. a. Typical atrial flutter post CTI ablation on 04/20/2017. b. Paroxysmal atrial fibrillation, prior cardioversion on chronic propafenone therapy. c. Current admission with recurrent atrial fibrillation. 2. Status post lariat procedure and subsequent coil embolization in December 2017. He is off OAC.. 3. Sick sinus syndrome, status post dual-chamber pacemaker implantation on April 20, 2017. 4. History of diastolic heart failure with preserved LVEF of 60% to 65%. 5. History of pulmonary vasculitis. 6. History of peripheral artery embolization requiring thrombectomy. 7. History of occasional PVCs. 8. History of syncope without arrhythmias in February 2017. ALLERGIES: KEFLEX AND ERYTHROMYCIN. MEDICATIONS: At home included; 1. Aspirin. 2. Coenzyme Q10. 3. Rosuvastatin. 4. Cholecalciferol. 5. Amlodipine. 6. Propafenone 150 mg q.8h. 7. Omeprazole. 8. Metoprolol tartrate. 9. Ferrous sulfate. 10. Hydralazine. 11. Promethazine. 12. Levothyroxine. 13. Allopurinol. 14. Calcitriol. 15. Docusate. SUBJECTIVE: Mr. Burkett has been noticing his heart rates are irregular. He does not have severe symptoms with mild palpitations. Denies passing out or angina- like discomfort. Denies PND or orthopnea at this time. There is fluid overload. No stroke-like symptoms. No neurological deficits. Rest of 12-point review of system otherwise unremarkable. PAST MEDICAL HISTORY: As above for hypertension, history of renal cancer, peripheral embolization, hyperlipidemia, and DVT. SOCIAL HISTORY: The patient drinks socially. Denies EtOH or drug abuse. FAMILY HISTORY: Not contributory. OBJECTIVE DATA: VITAL SIGNS: Blood pressure 126/58, heart rate 80, respiratory rate 18, and temperature 97.6 degrees Fahrenheit. GENERAL: Alert and oriented man, in no apparent distress. NECK: Supple. Jugular veins not distended. CHEST: Coarse with crackles. HEART: Sounds are irregularly irregular. S1 and S2 are variable. No murmur or gallop. ABDOMEN: Benign. Bowel sounds positive. EXTREMITIES: Lower extremities without edema, clubbing, or cyanosis. DATABASE: EKGs reviewed revealing atrial fibrillation with intermittent ventricular pacing, narrow QRS is seen, rates about 100 beats per minute. LABORATORY DATA: White cell count 7.5, hematocrit 13.7, and platelet count is 177. Sodium 143, potassium 4, BUN is 24, and creatinine 1.63. Troponin levels are 0.019 and 0.018 and BNP 267. ASSESSMENT AND PLAN: Mr. Burkett is a pleasant 69-year-old man with history of recurrent atrial arrhythmias, who underwent cavotricuspid isthmus ablation back on April 20, 2017, has now recurrent atrial fibrillation episodes. He underwent lariat device closure, which has been demonstrated closed in the past. He has been well suppressed with propafenone without recurrent atrial flutter/fibrillation But now he is backwith sustained atypical atrial fibrillation/flutter. We discussed treatment options, which would include repeat cardioversion, continued antiarrhythmic agents versus ablation. For now, we agreed cardioversion, hence he has history of adequate appendage ligation with lariat procedure and has been verified in the past, reasonable to proceed with cardioversion without further anticoagulation attempt. We will make arrangements for that. He could be considered to be discharged on the same dose of propafenone as before and he will be scheduled for routine followup in 6 weeks in our office. In the future, depending on his ability to anticoagulate more extensive ablation efforts could be considered versus increasing diuretic agents as well as a possibility of recurrent atrial fibrillation/flutter is seen. Discussed these issues with Dr. Hines and agreed to perform the cardioversion today. It is a routine pacemaker checks in the future, and adequate function today. Job ID: [id number] [facility]
--- NOTE | 2019-06-03 15:52 | OP ---
DATE OF PROCEDURE: 06/03/19 SURGEON: Scott Hines M.D. INDICATION: Atrial fibrillation. PROCEDURE: Electrical cardioversion. INDICATION: Patient was sedated by anesthesia. With 200 joules of synchronized cardioversion, he returned to atri al pacing and ventricular pacing. Patient tolerated the procedure well.
--- NOTE | 2019-06-03 19:35 | DIS ---
DATE OF ADMISSION: 06/02/2019 DATE OF DISCHARGE: 06/03/2019 DISCHARGE DIAGNOSES: 1. Atrial fibrillation with variable rate, status post cardioversion. 2. Left shoulder pain, likely secondary to #1, improved. 3. Hypertension, stable. 4. Chronic kidney disease stage 3. CONSULTATIONS: Dr. Hines with Cardiology Service. PERTINENT LABORATORY AND X-RAY FINDINGS: Creatinine 1.63, estimated GFR 42. Troponin I negative x3. BNP 268. CBC showed a hemoglobin of 14, hematocrit 40, platelet count 177. Portable chest x-ray dated 06/02/2019, showed no acute cardiopulmonary process. Two views of the left hip dated 06/02/2019, showed no acute process. HOSPITAL COURSE: The patient was observed on the telemetry unit after initially presenting with left chest pain and shoulder discomfort with telemetry monitoring showing atrial fibrillation. The patient with longstanding history of atrial fibrillation/atrial flutter, status post pacemaker placement, evaluated by the Cardiology Service. The patient proceeded to synchronized cardioversion with successful return to pacing. The patient tolerated the procedure and was observed on the telemetry unit without complication. Overall, the patient remained clinically stable during the hospital course. I have examined the patient at the time of discharge and discussed followup instructions. The patient verbalized understanding and in agreement, ready for discharge on 06/03/2019. DISCHARGE MEDICATIONS: 1. Propafenone 150 mg p.o. t.i.d. 2. Allopurinol 150 mg p.o. daily. 3. Amlodipine 5 mg p.o. b.i.d. 4. Aspirin 81 mg p.o. at bedtime. 5. Calcitriol 0.25 mcg p.o. daily. 6. Vitamin D3 of 2000 units p.o. daily. 7. Docusate sodium 100 mg p.o. daily. 8. Ferrous sulfate 325 mg p.o. b.i.d. 9. Hydralazine 100 mg p.o. b.i.d. 10. Levothyroxine 50 mcg p.o. daily. 11. Metoprolol tartrate 50 mg p.o. b.i.d. 12. Omeprazole 20 mg p.o. b.i.d. 13. Promethazine 25 mg p.o. t.i.d. p.r.n. 14. Crestor 5 mg p.o. at bedtime. 15. Coenzyme Q10 100 mg p.o. at bedtime. FOLLOWUP: The patient may follow up with his primary care provider, Dr. Barbara Saavedra within 7 days of discharge. The patient will follow up with Dr. Scott Hines with [facility] Cardiology Service and to call his office for appointment time and date. CONDITION ON DISCHARGE: Stable. ACTIVITY: Ad-erin. DIET: Heart healthy. CODE STATUS: Full. DISPOSITION: Home on 06/03/2019. Job ID: [id number]
--- NOTE | 2019-06-07 15:22 | EKG ---
Test Reason : CHEST PAIN Blood Pressure : / mmHG Vent. Rate : 098 BPM Atrial Rate : 092 BPM P-R Int : 000 ms QRS Dur : 100 ms QT Int : 366 ms P-R-T Axes : 000 079 006 degrees QTc Int : 467 ms Suspect unspecified pacemaker failure Atrial fibrillation with frequent ventricular-paced complexes Anteroseptal infarct , age undetermined Abnormal ECG Confirmed by DENNIS DAMON, DORITA ([id number]), assistant production editor MEGHAN ALCOCER ([id number]) on 06/07/2019 3:21:58 PM Referred By: DENNIS Confirmed By:DORITA COLLINS MD
--- NOTE | 2019-06-09 22:42 | EKG ---
Test Reason : POST CARDIOVERSION Blood Pressure : / mmHG Vent. Rate : 060 BPM Atrial Rate : 060 BPM P-R Int : 000 ms QRS Dur : 098 ms QT Int : 392 ms P-R-T Axes : 053 072 079 degrees QTc Int : 392 ms Electronic atrial pacemaker When compared with ECG of 02-JUN-2019 16:01, (Unconfirmed) Electronic atrial pacemaker has replaced Electronic ventricular pacemaker Vent. rate has decreased BY 38 BPM Confirmed by ROZ GRAVES M.D. ([id number]) on 06/09/2019 10:41:45 PM Referred By: ARTIS Confirmed By:ROZ GRAVES M.D.
== END 2019-06-03 16:08 | disposition home or self-care (01) ==
LOC: ERS 15:57 → ERHOLD 17:54 → 2SW 21:54
PROVIDERS: ADMIT Internal Medicine; ATTEND Internal Medicine
DX: I48.0 Paroxysmal atrial fibrillation (principal); I48.92 Unspecified atrial flutter; I13.0 Hypertensive heart and chronic kidney disease with heart failure and stage 1 through stage 4 chronic kidney disease, or unspecified chronic kidney disease; N18.3 Chronic kidney disease, stage 3 (moderate); I50.9 Heart failure, unspecified; E03.9 Hypothyroidism, unspecified; E78.5 Hyperlipidemia, unspecified; G47.30 Sleep apnea, unspecified; Z79.82 Long term (current) use of aspirin; Z79.899 Other long term (current) drug therapy; Z88.1 Allergy status to other antibiotic agents; Z95.0 Presence of cardiac pacemaker
CPT/HCPCS: 71045; 73502; 80053; 82550; 83690; 83880; 84484 ×2; 85025; 90662; 92960; 93005 ×2; 93306; 96361; 96372; 96374; 99285; G0008; G0378 ×2; 36415; 90471; 93010; J1650

== ENCOUNTER 2019-07-08 16:41 | Emergency (ER) | payer MEDICARE, OTHER ==
[2019-07-08] MEDS ORDERED: Fentanyl 100 MCG/2 ML VIAL ONE ×3 (17:09→20:47)
--- NOTE | 2019-07-08 17:45 | CT ---
CT BRAIN NONCONTRAST: DATE: 07/08/2019 HISTORY: 69-year-old male status post acute head trauma due to fall from ladder. FINDINGS: There is no evidence of acute intra-axial or extra-axial hemorrhage. There is no midline shift or any other mass effect. There is no extra-axial fluid collection. There is no evidence of obstructive hydrocephalus. Calvarium is intact. There is a right mastoidectomy defect. There appears to be at [place] st partially intact osseous wall between the external auditory canal and the mastoidectomy defect. The mastoidectomy defect and the rest of the bilateral tympanomastoid cavities appear to be grossly c lear. IMPRESSION: 1. No acute intracranial findings. 2. Status post wall down right mastoidectomy.
--- NOTE | 2019-07-08 17:47 | CT ---
CT CERVICAL SPINE NONCONTRAST: DATE: 07/08/2019 HISTORY: 69-year-old male status post acute cervical trauma due to fall from ladder. FINDINGS: There are no jumped or perched facets. There is no evidence of acute fracture. The vertebral body hei ghts are maintained. There is no prevertebral soft tissue swelling. IMPRESSION: No evidence of acute fracture or acute traumatic subluxation.
--- NOTE | 2019-07-08 18:04 | RAD ---
Radiograph right shoulder 3 views: DATE: 07/08/2019 Time: 6:43 PM HISTORY: 69-year-old male with acute traumatic injury and deformity of right shoulder due to fall from ladder FINDINGS: There is anterior-inferior dislocation of the humeral head relative to the glenoid. No acute fracture is identified. AC joint is congruent. IMPRESSION: Acute, traumatic anterior-inferior dislocation of glenohumeral joint of right shoulder.
--- NOTE | 2019-07-08 18:05 | RAD ---
Radiograph right clavicle 2 views: DATE: 07/08/2019 HISTORY: 69-year-old male with traumatic right clavicular pain due to fall from ladder. FINDINGS: There is no acute fracture of the clavicle. AC joint is congruent. There is dislocation of the glenoh umeral joint. IMPRESSION: 1. Acute, traumatic anterior-inferior dislocation of the glenohumeral joint of the right shoulder. 2. No clavicular fracture identified.
--- NOTE | 2019-07-08 18:07 | RAD ---
RADIOGRAPH CHEST 1 VIEW: DATE: 07/08/2019 HISTORY: 69-year-old male status post acute chest trauma from fall from ladder. FINDINGS: There is no airspace density, pulmonary edema, or pneumothorax. The lateral costophrenic angles are n ot effaced. Right glenohumeral joint dislocation. Left subclavian dual lead pacemaker. IMPRESSION: 1. No acute pulmonary findings. 2. Anterior inferior dislocation of right shoulder. 3. Pacemaker.
--- NOTE | 2019-07-08 18:08 | RAD ---
Radiograph right humerus one view: DATE: 07/08/2019 Time: 6:48 PM HISTORY: 69-year-old male with acute, traumatic right arm pain due to fall FINDINGS: Dislocation of the shoulder. No fracture of humerus identified, but the evaluation is limited because it is only a single view. The medial humeral condyle is excluded from the [id number]. IMPRESSION: 1. Acute, traumatic anterior-inferior dislocation of the glenohumeral joint of the right shoulder. 2. No humeral fracture identified.
[2019-07-08 18:20] LABS: #Basophils 0.1 thou/uL (0.0-0.2); #Eosinphils 0.3 thou/uL (0.0-0.7); #Lymphocytes 1.3 thou/uL (1.20-3.40); #Monocytes 0.7 thou/uL (0.11-0.59); #Neutrophils 7.7 thou/uL (1.40-6.50); %Basophils 0.7 % (0.0-1.0); %Lymphocytes 12.8 % (21.0-51.0); %Monocytes 6.7 % (0.0-10.0); %Neutrophils 76.8 % (42.0-75.0); Hemoglobin 13.8 g/dL (14.0-18.0); Mean Corpuscular HGB CONC 34.2 g/dL (32.0-36.0); Mean Corpuscular Hemoglobin 27.2 pg (27.0-31.0); Mean Corpuscular Volume 79.3 fL (78.0-98.0); Mean Platelet Volume 7.3 fL (7.4-10.4); Platelet Count 185 thou/uL (130-400); RBC Distribution Width 13.9 % (11.5-14.5); Red Blood Cell (RBC) Count 5.07 mill/uL (4.70-6.10)
[2019-07-08 18:26] LABS: Prothrombin Time 13.2 SEC (12.0-14.7)
[2019-07-08 18:59] LABS: ALT (SGPT) 14 U/L (8-55); AST (SGOT) 16 U/L (5-34); Albumin 4.4 g/dL (3.4-4.8); Alkaline Phosphatase 89 U/L (40-110); Anion Gap 12 mmol/L (10-20); BUN (Urea Nitrogen) 21 mg/dL (8.4-25.7); Bilirubin, Total 0.7 mg/dL (0.2-1.2); Calc. Creatinine Clearance 0 mL/min (70-130); Calcium 9.4 mg/dL (7.8-10.44); Carbon Dioxide 26 mmol/L (23-31); Chloride 105 mmol/L (98-107); Estimated GFR-MDRD 31; Globulin 2.3 g/dL (2.4-3.5); Glucose 89 mg/dL (83-110); Potassium 3.7 mmol/L (3.5-5.1); Protein, Total 6.7 g/dL (5.8-8.1); Sodium 139 mmol/L (136-145)
[2019-07-08] MEDS ORDERED: Diazepam 10 MG/2 ML SYRINGE ONE (19:22)
[2019-07-08] MEDS ORDERED: Bupivacaine 0.25% 10 ML VIAL ONE (19:23)
[2019-07-08] MEDS ORDERED: PROPOFOL 0 ML ONE (20:47)
[2019-07-08] MEDS ORDERED: PROPOFOL 20 ML ONE (21:41)
--- NOTE | 2019-07-08 22:07 | RAD ---
Radiograph right shoulder 2 views: DATE: 07/08/2019 Time: 9:32 PM HISTORY: 69-year-old male with acute traumatic shoulder dislocation. First reduction attempt. COMPARISON: 07/08/2019 6:43 PM FINDINGS: The glenohumeral joint is now located. IMPRESSION: Successful reduction of the acute, traumatic, anterior-inferior dislocation of the right glenohumeral joint
== END 2019-07-08 22:21 | disposition home or self-care (01) ==
LOC: ERS 16:41
DX: S43.014A Anterior dislocation of right humerus, initial encounter (principal); S43.034A Inferior dislocation of right humerus, initial encounter; I11.0 Hypertensive heart disease with heart failure; I50.9 Heart failure, unspecified; I49.9 Cardiac arrhythmia, unspecified; I48.91 Unspecified atrial fibrillation; M10.9 Gout, unspecified; G47.30 Sleep apnea, unspecified; E03.9 Hypothyroidism, unspecified; E78.5 Hyperlipidemia, unspecified; E78.00 Pure hypercholesterolemia, unspecified; Z79.899 Other long term (current) drug therapy; Z79.82 Long term (current) use of aspirin; W11.XXXA Fall on and from ladder, initial encounter
CPT/HCPCS: 36415; 64450; 70450; 71045; 72125; 80048; 85025; 85610; 86850; 86900; 86901; 93005; 96374; 96375; 96376; J2704; J3010; J3360; S0020

== ENCOUNTER 2019-09-11 08:30 | Outpatient (CLI) | payer MEDICARE, OTHER ==
--- NOTE | 2019-09-11 10:50 | CT ---
CT arthrogram of the right shoulder INDICATION: History of shoulder dislocation and right shoulder pain TECHNIQUE: Multiple CT images were obtained of the right shoulder following intra-articular administr ation of a dilute Omnipaque solution. Please see the separately dictated right shoulder arthrogram for details concerning the injection technique. COMPARISON: Right shoulder radiographs dated July 08, 2019. FINDINGS: There is a moderate-sized Hill-Sachs deformity of the posterior superior humeral head. Ther e is a moderate osseous Bankart impaction fracture involving the anterior inferior and inferior glenoid labrum. The largest fragment of the anterior inferior glenoid articular surface measures 1.5 cm on image 33 of the sagittal series. The largest fragment of the inferior glenoid rim measures 1.7 cm on image 32 of the sagittal series. Visualized aspects of the anterior inferior glenohumeral l abral ligamentous complex appear intact otherwise. There is a massive rotator cuff tear involving the supraspinatus, infraspinatus, anterior to mid teres minor and cranial to mid subscapularis. There is severe muscular atrophy of the supraspinatus and infraspinatus with mild muscular atrophy of the subscapularis and teres minor. The tendons of the supraspinatus and infraspinatus are retracted t o the level of the supraspinatus fossa. The long head of the biceps tendon is completely disrupted and distally retracted. There is degenerative fraying of the superior glenoid labrum. There is modera te to severe AC joint osteoarthrosis. The visualized right lung demonstrates areas of subsegmental volume loss but is otherwise clear. There is partial visualization of a dual-lead pacemaker within th e right aspect of the heart as well as in the right SVC. IMPRESSION: 1. Massive rotator cuff tear with prominent rotator cuff muscular atrophy. 2. Hill-Sachs deformity humeral head with an osseous Bankhart lesion of the anterior inferior and inf erior glenoid. 3. Complete disruption of the intra-articular biceps tendon with distal retraction. 4. 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
--- NOTE | 2019-09-11 15:43 | RAD ---
Right shoulder arthrogram fluoroscopic guided HISTORY: Internal derangement. Rotator cuff tear. FINDINGS: After explaining the procedure and answering all questions, the anterior aspect of the [facility] t shoulder was prepped and draped in usual sterile fashion. Sterile technique, buffered local anesthesia, fluoroscopic guidance, and an anterior approach were used to carefully advance the tip of a 22-gauge spinal needle to the joint capsule at the level of the humeral head. A total volume of 10 cc liquid containing normal saline, 1% lidocaine, and iodinated contrast was carefully instilled i nto the joint capsule under fluoroscopic control. Needle was removed. Contrast immediately spilled throughout the subdeltoid and subacromial bursae. Patient tolerated the procedure well and was transf erred to CT in good condition. Fluoroscopy time 0.7 minutes. IMPRESSION: Technically successful right shoulder arthrogram showing full-thickness rotator cuff tear . CT is pending.
== END 2019-09-11 08:31 | disposition home or self-care (01) ==
LOC: RAD 08:30
PROVIDERS: ATTEND Orthopaedic Surgery
DX: S43.014D Anterior dislocation of right humerus, subsequent encounter (principal); M75.121 Complete rotator cuff tear or rupture of right shoulder, not specified as traumatic; M19.011 Primary osteoarthritis, right shoulder; M67.88 Other specified disorders of synovium and tendon, other site; M21.821 Other specified acquired deformities of right upper arm; M89.9 Disorder of bone, unspecified
CPT/HCPCS: 23350

== ENCOUNTER 2020-09-09 10:29 | Emergency (ER) | payer MEDICARE, OTHER ==
[2020-09-09 23:52] LABS: SARS-CoV-2 PCR by NAA DETECTED (NotDetected)
== END 2020-09-09 10:58 | disposition home or self-care (01) ==
LOC: ERS 10:29
DX: U07.1 COVID-19 (principal); M10.9 Gout, unspecified; E03.9 Hypothyroidism, unspecified; E78.5 Hyperlipidemia, unspecified; E78.00 Pure hypercholesterolemia, unspecified; I10 Essential (primary) hypertension; Z86.718 Personal history of other venous thrombosis and embolism; Z79.82 Long term (current) use of aspirin; Z79.899 Other long term (current) drug therapy
CPT/HCPCS: U0003; U0005; 87635; 99283

== ENCOUNTER 2021-09-02 14:29 | Outpatient (CLI) | payer MEDICARE, OTHER ==
[2021-09-02 15:41] LABS: Hemoglobin 14.2 g/dL (13.5-17.5); Mean Corpuscular HGB CONC 32.1 g/dL (32.0-36.0); Mean Corpuscular Hemoglobin 25.9 pg (27.0-33.0); Mean Corpuscular Volume 80.5 fl (81.2-95.1); Mean Platelet Volume 10.1 fl (7.4-10.4); Platelet Count 161 10x3/uL (150-450); RBC Distribution Width 15.2 % (11.5-14.5); Red Blood Cell (RBC) Count 5.49 10x6/uL (4.32-5.72); White Blood Cell (WBC) Count 6.1 10x3/uL (3.5-10.5)
[2021-09-02 16:14] LABS: Anion Gap 13 mmol/L (10-20); BUN (Urea Nitrogen) 28 mg/dL (8.4-25.7); Calc. Creatinine Clearance 0 mL/min (70-130); Calcium 8.7 mg/dL (7.8-10.44); Carbon Dioxide 22 mmol/L (23-31); Chloride 109 mmol/L (98-107); Glucose 111 mg/dL (83-110); Potassium 4.2 mmol/L (3.5-5.1); Sodium 140 mmol/L (136-145)
[2021-09-03 12:54] LABS: SARS-CoV-2 PCR by NAA Not Detected (NotDetected)
== END 2021-09-02 14:30 | disposition home or self-care (01) ==
LOC: LABBT 14:29
PROVIDERS: ATTEND Internal Medicine Cardiovascular Disease
DX: Z01.812 Encounter for preprocedural laboratory examination (principal); Z20.822 Contact with and (suspected) exposure to COVID-19
CPT/HCPCS: 80048; 85027; U0003; U0005

== ENCOUNTER 2021-09-07 05:59 | Day surgery (SDC) | payer MEDICARE, OTHER ==
[2021-09-02 10:26] VITALS: BMI 34.2
[2021-09-07] MEDS ORDERED: HYDROmorphone 2 MG/ML VIAL ONE (07:38)
[2021-09-07] MEDS ORDERED: PROPOFOL 200 MG/20 ML VIAL ONE (08:00)
[2021-09-07] MEDS ORDERED: Lidocaine 1% PF 5 ML VIAL ONE (08:00)
== END 2021-09-07 10:00 | disposition home or self-care (01) ==
LOC: CCL 05:59
PROVIDERS: ATTEND Internal Medicine Cardiovascular Disease
PROC: 5A2204Z Restoration of Cardiac Rhythm, Single (ICD-10-PCS; principal; 2021-09-07)
DX: I48.91 Unspecified atrial fibrillation (principal); I48.3 Typical atrial flutter; I47.2 Ventricular tachycardia; I13.10 Hypertensive heart and chronic kidney disease without heart failure, with stage 1 through stage 4 chronic kidney disease, or unspecified chronic kidney disease; E11.22 Type 2 diabetes mellitus with diabetic chronic kidney disease; N18.4 Chronic kidney disease, stage 4 (severe); E78.00 Pure hypercholesterolemia, unspecified; C64.9 Malignant neoplasm of unspecified kidney, except renal pelvis; I87.2 Venous insufficiency (chronic) (peripheral); E03.9 Hypothyroidism, unspecified; Z86.718 Personal history of other venous thrombosis and embolism; Z79.82 Long term (current) use of aspirin; Z79.899 Other long term (current) drug therapy; Z88.1 Allergy status to other antibiotic agents; Z90.5 Acquired absence of kidney; Z95.0 Presence of cardiac pacemaker
CPT/HCPCS: 92960; 93005; 93010; J1170

== ENCOUNTER 2021-12-23 09:16 | Outpatient (CLI) | payer MEDICARE, OTHER | END 2021-12-23 09:17 | disposition home or self-care (01) | LOC: BICRAD 09:16 | PROVIDERS: ATTEND Internal Medicine | DX: M54.50 Low back pain, unspecified (principal); M25.552 Pain in left hip; M25.551 Pain in right hip; Z98.890 Other specified postprocedural states; M47.816 Spondylosis without myelopathy or radiculopathy, lumbar region; M48.061 Spinal stenosis, lumbar region without neurogenic claudication | CPT/HCPCS: 72100 ==

== ENCOUNTER 2021-12-28 08:54 | Outpatient (CLI) | payer MEDICARE, OTHER ==
[2021-12-28 10:09] LABS: #Basophils 0.1 10x3/uL (0.0-0.2); #Eosinphils 0.3 10x3/uL (0.0-0.5); #Monocytes 0.5 10x3/uL (0.0-1.1); #Neutrophils 3.6 10x3/uL (1.5-8.4); %Basophils 1.7 % (0.0-2.0); %Eosinophils 5.1 % (0.0-6.0); %Lymphocytes 22.7 % (18.0-47.0); %Monocytes 9.2 % (0.0-10.0); %Neutrophils 60.6 % (40.0-75.0); Hemoglobin 15.1 g/dL (13.5-17.5); Mean Corpuscular HGB CONC 32.6 g/dL (32.0-36.0); Mean Corpuscular Hemoglobin 25.6 pg (27.0-33.0); Mean Corpuscular Volume 78.5 fl (81.2-95.1); Mean Platelet Volume 9.7 fl (7.4-10.4); Platelet Count 170 10x3/uL (150-450); RBC Distribution Width 17.3 % (11.5-14.5); White Blood Cell (WBC) Count 5.9 10x3/uL (3.5-10.5)
[2021-12-28 10:26] LABS: Anion Gap 16 mmol/L (10-20); BUN (Urea Nitrogen) 26 mg/dL (8.4-25.7); Calc. Creatinine Clearance 0 mL/min (70-130); Calcium 8.5 mg/dL (7.8-10.44); Carbon Dioxide 18 mmol/L (23-31); Chloride 108 mmol/L (98-107); Glucose 114 mg/dL (83-110); Potassium 3.7 mmol/L (3.5-5.1); Sodium 138 mmol/L (136-145)
[2021-12-28 10:29] LABS: INR-International Normal Ratio 0.9; Prothrombin Time 10.2 sec (9.5-12.1)
[2021-12-28 16:07] LABS: SARS-CoV-2 PCR by NAA Not Detected (NotDetected)
== END 2021-12-28 08:55 | disposition home or self-care (01) ==
LOC: LABBT 08:54
PROVIDERS: ATTEND Orthopaedic Surgery
DX: Z01.818 Encounter for other preprocedural examination (principal); M17.11 Unilateral primary osteoarthritis, right knee; Z20.822 Contact with and (suspected) exposure to COVID-19
CPT/HCPCS: 80048; 85025; 85610; 87081; 93005; U0003; U0005; 93010

== ENCOUNTER 2021-12-28 10:06 | Outpatient (CLI) | payer MEDICARE, OTHER | END 2021-12-28 10:07 | disposition home or self-care (01) | LOC: CT 10:06 | PROVIDERS: ATTEND Internal Medicine | DX: M54.2 Cervicalgia (principal); M47.812 Spondylosis without myelopathy or radiculopathy, cervical region; Z01.818 Encounter for other preprocedural examination; M17.11 Unilateral primary osteoarthritis, right knee; Z20.822 Contact with and (suspected) exposure to COVID-19 | CPT/HCPCS: 72125; 80048; 85025; 85610; 87081; 93005; 93010; U0003; U0005 ==

== ENCOUNTER 2022-01-02 06:31 | Inpatient (IN) | payer MEDICARE, OTHER ==
[2022-01-02] MEDS ORDERED: Vancomycin (BATCH) 1.5 GRAM/300 ML BAG ONE (07:23)
[2022-01-02] MEDS ORDERED: Tranexamic Acid 1,000 MG/10 ML VIAL ONE (07:23)
[2022-01-02] MEDS ORDERED: Sodium Chloride 0.9% 100 ML ONE (07:23)
[2022-01-02] MEDS ORDERED: Midazolam HCl 2 mg/2 ml Vial ONE (08:15)
[2022-01-02] MEDS ORDERED: Fentanyl 100 MCG/2 ML VIAL ONE ×3 (08:15→12:02)
[2022-01-02] MEDS ORDERED: Fentanyl 250 MCG/5 ML VIAL ONE (08:51)
[2022-01-02] MEDS ORDERED: Bupivacaine PF 0.5% 30 ML VIAL ONE ×2 (08:52→09:03)
[2022-01-02] MEDS ORDERED: Ondansetron PF 4 MG/2 ML Vial IVP PRN ×2 (09:02→09:30)
[2022-01-02] MEDS ORDERED: Fentanyl 100 MCG/2 ML VIAL SLOW IVP PRN (09:02)
[2022-01-02] MEDS ORDERED: Zolpidem Tartrate 5 MG TAB PO PRN ×2 (09:02→09:30)
[2022-01-02] MEDS ORDERED: Promethazine HCl 25 MG/ML VIAL IM PRN ×3 (09:02→10:51)
[2022-01-02] MEDS ORDERED: diphenhydrAMINE 25 MG CAP PO PRN (09:02)
[2022-01-02] MEDS ORDERED: HYDROcodone/Acetaminophen 10/325 mg Tablet PO PRN ×2 (09:02)
[2022-01-02] MEDS ORDERED: ceFAZolin (BATCH) 2 GM/100 ML BAG ONE (09:03)
[2022-01-02] MEDS ORDERED: Levofloxacin 500 mg/D5W 100 ml Premix Bag ONE (09:04)
[2022-01-02] MEDS ORDERED: ePHEDrine 50 MG/ML VIAL ONE (09:10)
[2022-01-02] MEDS ORDERED: PHENYLEPHRINE-NS 100 MCG/ML 10 ML SYRINGE ONE (09:10)
[2022-01-02] MEDS ORDERED: Succinylcholine 200 MG/10 ml SYRINGE FS ONE (09:10)
[2022-01-02] MEDS ORDERED: Bupivacaine HCl 0.5%/Epinephrine 1:200,000/PF 30 ml Vial ONE (09:10)
[2022-01-02] MEDS ORDERED: PROPOFOL 200 MG/20 ML VIAL ONE (09:10)
[2022-01-02] MEDS ORDERED: Glycopyrrolate 0.2 MG/ML 5 ML SYRINGE ONE (09:10)
[2022-01-02] MEDS ORDERED: Rocuronium Bromide 10 MG/ML (10ML VIAL) ONE (09:10)
[2022-01-02] MEDS ORDERED: Ondansetron PF 4 MG/2 ML Vial ONE (09:10)
[2022-01-02] MEDS ORDERED: Fentanyl 100 MCG/2 ML VIAL IV PRN (09:28)
[2022-01-02] MEDS ORDERED: traMADol HCl 50 MG TAB PO PRN ×2 (09:30)
[2022-01-02] MEDS ORDERED: Ropivacaine 0.2% 550 ML 550 ML NERVE BLCK SCH (09:30)
[2022-01-02] MEDS ORDERED: SUGAMMADEX SODIUM 200 MG/2 ML VIAL ONE (10:12)
[2022-01-02] MEDS ORDERED: HYDROmorphone 2 MG/ML VIAL SLOW IVP PRN (10:51)
[2022-01-02] MEDS ORDERED: Promethazine HCl 25 MG/ML VIAL IVPB PRN (10:51)
[2022-01-02] MEDS ORDERED: Ondansetron HCl/PF 4 MG/2 ML Vial IVP PRN (10:51)
[2022-01-02] MEDS ORDERED: Ketorolac Tromethamine 30 MG/ML VIAL IVP SCH (12:00)
[2022-01-02 13:05] VITALS: BMI 31.8
[2022-01-02] MEDS: Propafenone HCl 150 MG TAB PO SCH ×2 (14:20→21:38)
[2022-01-02] MEDS: Gabapentin 300 MG CAP PO SCH ×2 (14:21→21:36)
[2022-01-02] MEDS: Acetaminophen 325 MG TAB PO PRN (14:21)
[2022-01-02] MEDS: Sodium Chloride 0.9% 1,000 ML IV SCH ×2 (15:02→21:37)
[2022-01-02] MEDS: Ketorolac Tromethamine 30 MG/ML VIAL IVP SCH ×2 (16:37→21:40)
[2022-01-02] MEDS ORDERED: Vancomycin HCl 1.5 GM in Sodium Chloride 0.9% 250 ML 300 ML IVPB SCH (18:00)
[2022-01-02] MEDS: HYDROcodone/Acetaminophen 10/325 mg Tablet PO PRN ×2 (18:48→23:49)
[2022-01-02] MEDS: Senokot S 8.6-50 MG TAB PO SCH (19:39)
[2022-01-02] MEDS: Ferrous Gluconate 324 MG TAB PO SCH (19:39)
[2022-01-02] MEDS ORDERED: Non-Formulary Item 1 EACH (Omeprazole [Omeprazole] 20 MG Capsule.Dr) PO SCH (21:00)
[2022-01-02] MEDS ORDERED: Metoprolol Tartrate 25 MG TAB PO SCH (21:00)
[2022-01-02] MEDS ORDERED: Aspirin 81 mg Enteric Coated Tablet PO SCH (21:00)
[2022-01-02] MEDS ORDERED: Non-Formulary Item 1 EACH (Ferrous Sulfate [Ferrous Sulfate] 325 MG Tablet) PO SCH (21:00)
[2022-01-02] MEDS: Amlodipine 5 MG TAB PO SCH (21:35)
[2022-01-02] MEDS: Rosuvastatin 5 MG TAB PO SCH (21:36)
[2022-01-02] MEDS: Metoprolol Tartrate 100 MG TAB PO SCH (21:36)
[2022-01-02] MEDS: Ferrous Sulfate 325 MG TAB PO SCH (21:36)
[2022-01-03] MEDS: Ketorolac Tromethamine 30 MG/ML VIAL IVP SCH ×4 (04:19→21:10)
[2022-01-03] MEDS: Sodium Chloride 0.9% 1,000 ML IV SCH ×2 (04:19→16:45)
[2022-01-03] MEDS: Gabapentin 300 MG CAP PO SCH ×3 (05:49→21:09)
[2022-01-03] MEDS: Levothyroxine Sodium 50 MCG TAB PO SCH (05:49)
[2022-01-03] MEDS: Propafenone HCl 150 MG TAB PO SCH ×3 (05:49→21:09)
[2022-01-03 06:53] LABS: Hemoglobin 13.9 g/dL (14.0-18.0); Mean Corpuscular HGB CONC 32.6 g/dL (32.0-36.0); Mean Corpuscular Hemoglobin 26.8 pg (27.0-31.0); Mean Corpuscular Volume 82.1 fL (78.0-98.0); Mean Platelet Volume 7.6 fL (7.4-10.4); Platelet Count 128 thou/uL (130-400); RBC Distribution Width 14.5 % (11.5-14.5); White Blood Cell (WBC) Count 10.2 thou/uL (4.8-10.8)
[2022-01-03] MEDS ORDERED: Multivitamin W/ Minerals 1 TAB PO SCH (09:00)
[2022-01-03] MEDS ORDERED: Non-Formulary Item 1 EACH (Cholecalciferol (Vitamin D3) [Vitamin D3] 2,000 UNIT Tablet) PO SCH (09:00)
[2022-01-03] MEDS ORDERED: Non-Formulary Item 1 EACH (Hydralazine Hcl [Hydralazine Hcl] 100 MG Tablet) PO SCH (09:00)
[2022-01-03] MEDS: HYDROcodone/Acetaminophen 10/325 mg Tablet PO PRN ×3 (09:35→21:20)
[2022-01-03] MEDS: Amlodipine 5 MG TAB PO SCH ×2 (09:56→21:06)
[2022-01-03] MEDS: Allopurinol 100 MG TAB PO SCH (09:56)
[2022-01-03] MEDS: hydrALAZINE 25 MG TAB PO SCH (09:57)
[2022-01-03] MEDS: Ferrous Gluconate 324 MG TAB PO SCH ×2 (09:57→21:08)
[2022-01-03] MEDS: Ferrous Sulfate 325 MG TAB PO SCH ×2 (09:57→21:08)
[2022-01-03] MEDS: Calcitriol 0.25 MCG CAP PO SCH (09:57)
[2022-01-03] MEDS: Cholecalciferol 1,000 UNITS (25 MCG) TAB PO SCH (09:57)
[2022-01-03] MEDS: Metoprolol Tartrate 100 MG TAB PO SCH ×2 (09:58→21:10)
[2022-01-03] MEDS: Senokot S 8.6-50 MG TAB PO SCH ×2 (09:58→21:09)
[2022-01-03] MEDS: Multivitamin W/ Minerals 1 TAB PO SCH (09:58)
[2022-01-03] MEDS ORDERED: Tamsulosin HCl 0.4 MG CAP PO SCH (14:15)
[2022-01-03] MEDS: Aspirin Chewable 81 MG TAB PO SCH (21:07)
[2022-01-03] MEDS: Rosuvastatin 5 MG TAB PO SCH (21:08)
[2022-01-04] MEDS: Sodium Chloride 0.9% 1,000 ML IV SCH ×3 (02:47→17:34)
[2022-01-04] MEDS: Acetaminophen 325 MG TAB PO PRN (03:15)
[2022-01-04] MEDS: Ketorolac Tromethamine 30 MG/ML VIAL IVP SCH ×2 (03:16→10:14)
[2022-01-04] MEDS: Gabapentin 300 MG CAP PO SCH ×3 (05:50→22:07)
[2022-01-04] MEDS: Propafenone HCl 150 MG TAB PO SCH ×3 (05:51→22:07)
[2022-01-04] MEDS: Levothyroxine Sodium 50 MCG TAB PO SCH (05:51)
[2022-01-04] MEDS: HYDROcodone/Acetaminophen 10/325 mg Tablet PO PRN (07:06)
[2022-01-04] MEDS: Senokot S 8.6-50 MG TAB PO SCH ×2 (10:14→22:06)
[2022-01-04] MEDS: Tamsulosin HCl 0.4 MG CAP PO SCH (10:14)
[2022-01-04] MEDS: Amlodipine 5 MG TAB PO SCH ×2 (10:19→22:05)
[2022-01-04] MEDS: Allopurinol 100 MG TAB PO SCH (10:19)
[2022-01-04] MEDS: Ferrous Sulfate 325 MG TAB PO SCH ×2 (10:20→22:06)
[2022-01-04] MEDS: Calcitriol 0.25 MCG CAP PO SCH (10:20)
[2022-01-04] MEDS: Ferrous Gluconate 324 MG TAB PO SCH ×2 (10:20→22:06)
[2022-01-04] MEDS: Cholecalciferol 1,000 UNITS (25 MCG) TAB PO SCH (10:20)
[2022-01-04] MEDS: hydrALAZINE 25 MG TAB PO SCH (10:20)
[2022-01-04] MEDS: Multivitamin W/ Minerals 1 TAB PO SCH (10:21)
[2022-01-04] MEDS: Metoprolol Tartrate 100 MG TAB PO SCH ×2 (10:21→22:06)
[2022-01-04] MEDS ORDERED: Bisacodyl 10 MG SUPP PR PRN (10:28)
[2022-01-04] MEDS ORDERED: Fleet Enema 133 ML BOT PR SCH (14:45)
[2022-01-04 16:15] LABS: #Eosinphils 0.2 thou/uL (0.0-0.7); #Lymphocytes 1.1 thou/uL (1.20-3.40); #Neutrophils 10.3 thou/uL (1.40-6.50); %Basophils 0.2 % (0.0-1.0); %Eosinophils 1.8 % (0.0-10.0); %Lymphocytes 8.4 % (21.0-51.0); %Neutrophils 81.7 % (42.0-75.0); Hemoglobin 14.8 g/dL (14.0-18.0); Mean Corpuscular Hemoglobin 26.9 pg (27.0-31.0); Mean Corpuscular Volume 81.5 fL (78.0-98.0); Mean Platelet Volume 7.8 fL (7.4-10.4); Platelet Count 166 thou/uL (130-400); RBC Distribution Width 14.8 % (11.5-14.5); White Blood Cell (WBC) Count 12.6 thou/uL (4.8-10.8)
[2022-01-04 16:33] LABS: Anion Gap 15 mmol/L (10-20); BUN (Urea Nitrogen) 30 mg/dL (8.4-25.7); Calc. Creatinine Clearance 46 mL/min (70-130); Calcium 9.2 mg/dL (7.8-10.44); Carbon Dioxide 18 mmol/L (23-31); Chloride 103 mmol/L (98-107); Glucose 101 mg/dL (83-110); Potassium 4.1 mmol/L (3.5-5.1); Sodium 132 mmol/L (136-145)
[2022-01-04] MEDS ORDERED: Sodium Chloride 0.9% 500 ML IV SCH (16:45)
[2022-01-04 17:11] LABS: Albumin 4.1 g/dL (3.4-4.8)
[2022-01-04 17:14] LABS: Globulin 2.7 g/dL (2.4-3.5); Protein, Total 6.8 g/dL (5.8-8.1)
[2022-01-04 17:15] LABS: Bilirubin, Total 0.9 mg/dL (0.2-1.2)
[2022-01-04 17:16] LABS: Alkaline Phosphatase 91 U/L (40-110)
[2022-01-04 17:18] LABS: AST (SGOT) 17 U/L (5-34)
[2022-01-04 17:19] LABS: ALT (SGPT) 16 U/L (8-55)
[2022-01-04] MEDS ORDERED: hydrALAZINE 20 MG/ML VIAL SLOW IVP PRN (21:46)
[2022-01-04] MEDS: Aspirin Chewable 81 MG TAB PO SCH (22:05)
[2022-01-04] MEDS: Rosuvastatin 5 MG TAB PO SCH (22:06)
[2022-01-05] MEDS: Sodium Chloride 0.9% 1,000 ML IV SCH ×3 (02:08→20:43)
[2022-01-05 06:36] LABS: #Eosinphils 0.2 thou/uL (0.0-0.7); #Lymphocytes 1.2 thou/uL (1.20-3.40); #Monocytes 0.7 thou/uL (0.11-0.59); #Neutrophils 4.7 thou/uL (1.40-6.50); %Basophils 0.5 % (0.0-1.0); %Eosinophils 3.5 % (0.0-10.0); %Lymphocytes 17.8 % (21.0-51.0); %Monocytes 10.6 % (0.0-10.0); %Neutrophils 67.7 % (42.0-75.0); Hemoglobin 13.4 g/dL (14.0-18.0); Mean Corpuscular HGB CONC 32.4 g/dL (32.0-36.0); Mean Corpuscular Volume 83.1 fL (78.0-98.0); Platelet Count 125 thou/uL (130-400); RBC Distribution Width 14.6 % (11.5-14.5); Red Blood Cell (RBC) Count 4.99 mill/uL (4.70-6.10); White Blood Cell (WBC) Count 6.9 thou/uL (4.8-10.8)
[2022-01-05 06:54] LABS: ALT (SGPT) 14 U/L (8-55); AST (SGOT) 15 U/L (5-34); Albumin 3.5 g/dL (3.4-4.8); Alkaline Phosphatase 76 U/L (40-110); Anion Gap 15 mmol/L (10-20); BUN (Urea Nitrogen) 31 mg/dL (8.4-25.7); Bilirubin, Total 0.8 mg/dL (0.2-1.2); Calc. Creatinine Clearance 51 mL/min (70-130); Calcium 8.4 mg/dL (7.8-10.44); Carbon Dioxide 18 mmol/L (23-31); Chloride 108 mmol/L (98-107); Globulin 2.3 g/dL (2.4-3.5); Glucose 90 mg/dL (83-110); Potassium 3.9 mmol/L (3.5-5.1); Protein, Total 5.8 g/dL (5.8-8.1); Sodium 137 mmol/L (136-145)
[2022-01-05] MEDS: Gabapentin 300 MG CAP PO SCH ×3 (07:35→20:45)
[2022-01-05] MEDS: Levothyroxine Sodium 50 MCG TAB PO SCH (07:35)
[2022-01-05] MEDS: Propafenone HCl 150 MG TAB PO SCH ×3 (07:36→20:45)
[2022-01-05 08:39] LABS: Hemoglobin A1c 4.9 % (4.0-6.0)
[2022-01-05] MEDS: Allopurinol 100 MG TAB PO SCH (09:16)
[2022-01-05] MEDS: Amlodipine 5 MG TAB PO SCH ×2 (09:16→20:31)
[2022-01-05] MEDS: Metoprolol Tartrate 100 MG TAB PO SCH ×2 (09:17→20:33)
[2022-01-05] MEDS: Calcitriol 0.25 MCG CAP PO SCH (09:17)
[2022-01-05] MEDS: hydrALAZINE 25 MG TAB PO SCH (09:17)
[2022-01-05] MEDS: Cholecalciferol 1,000 UNITS (25 MCG) TAB PO SCH (09:17)
[2022-01-05] MEDS: Ferrous Gluconate 324 MG TAB PO SCH ×2 (09:17→20:32)
[2022-01-05] MEDS: Ferrous Sulfate 325 MG TAB PO SCH ×2 (09:17→20:33)
[2022-01-05] MEDS: Multivitamin W/ Minerals 1 TAB PO SCH (09:18)
[2022-01-05] MEDS: Senokot S 8.6-50 MG TAB PO SCH ×2 (09:18→20:44)
[2022-01-05] MEDS: Tamsulosin HCl 0.4 MG CAP PO SCH (09:18)
[2022-01-05] MEDS ORDERED: MD-Gastroview 120 ML BOT ONE (14:08)
[2022-01-05] MEDS: Aspirin Chewable 81 MG TAB PO SCH (20:31)
[2022-01-05] MEDS: Rosuvastatin 5 MG TAB PO SCH (20:44)
[2022-01-05] MEDS: HYDROcodone/Acetaminophen 10/325 mg Tablet PO PRN (20:47)
[2022-01-06] MEDS: Sodium Chloride 0.9% 1,000 ML IV SCH ×2 (04:41→08:42)
[2022-01-06] MEDS: Gabapentin 300 MG CAP PO SCH (05:03)
[2022-01-06] MEDS: Propafenone HCl 150 MG TAB PO SCH (05:04)
[2022-01-06] MEDS: Levothyroxine Sodium 50 MCG TAB PO SCH (05:04)
[2022-01-06 05:37] LABS: Actual Bicarbonate (HCO3v) 20 mEq/L (22-28); Base Excess -4.4 mEq/L (-2.0 to +3.0); Calcium, Ionized (venous) 1.16 mmol/L (1.16-1.32); Chloride (VBG) 109 mmol/L (98-106); Hemoglobin (Hb) 13.8 g/dL (12.6-17.4); Potassium (VBG) 3.59 mmol/L (3.70-5.30); Sodium 138.8 mmol/L (133-146); pH (venous) 7.36 (7.32-7.43)
[2022-01-06 05:46] LABS: #Eosinphils 0.3 thou/uL (0.0-0.7); #Lymphocytes 1.4 thou/uL (1.20-3.40); #Monocytes 0.6 thou/uL (0.11-0.59); #Neutrophils 3.4 thou/uL (1.40-6.50); %Basophils 0.8 % (0.0-1.0); %Eosinophils 5.7 % (0.0-10.0); %Lymphocytes 24.3 % (21.0-51.0); %Monocytes 9.7 % (0.0-10.0); %Neutrophils 59.7 % (42.0-75.0); Hemoglobin 13.4 g/dL (14.0-18.0); Mean Corpuscular HGB CONC 33.2 g/dL (32.0-36.0); Mean Corpuscular Hemoglobin 27.3 pg (27.0-31.0); Mean Corpuscular Volume 82.2 fL (78.0-98.0); Mean Platelet Volume 7.7 fL (7.4-10.4); Platelet Count 126 thou/uL (130-400); RBC Distribution Width 14.4 % (11.5-14.5); Red Blood Cell (RBC) Count 4.91 mill/uL (4.70-6.10); White Blood Cell (WBC) Count 5.7 thou/uL (4.8-10.8)
[2022-01-06 06:10] LABS: ALT (SGPT) 12 U/L (8-55); AST (SGOT) 10 U/L (5-34); Albumin 3.5 g/dL (3.4-4.8); Alkaline Phosphatase 69 U/L (40-110); Anion Gap 11 mmol/L (10-20); BUN (Urea Nitrogen) 21 mg/dL (8.4-25.7); Bilirubin, Direct 0.3 mg/dL (0.1-0.3); Bilirubin, Total 0.7 mg/dL (0.2-1.2); Calc. Creatinine Clearance 64 mL/min (70-130); Calcium 8.6 mg/dL (7.8-10.44); Carbon Dioxide 21 mmol/L (23-31); Cardiac Risk 4.6 (Less than 4.5); Chloride 110 mmol/L (98-107); Cholesterol 96 mg/dl (< 200 Desired); Glucose 96 mg/dL (83-110); HDL Cholesterol 21 mg/dL (>60 Neg Risk); LDL Cholesterol, Calculated 37 mg/dL; Magnesium 1.8 mg/dL (1.6-2.6); Potassium 3.6 mmol/L (3.5-5.1); Protein, Total 5.6 g/dL (5.8-8.1); Sodium 138 mmol/L (136-145); Triglycerides 190 mg/dL (Less than 150)
[2022-01-06] MEDS: Amlodipine 5 MG TAB PO SCH (08:42)
[2022-01-06] MEDS: Allopurinol 100 MG TAB PO SCH (08:42)
[2022-01-06] MEDS: Calcitriol 0.25 MCG CAP PO SCH (08:43)
[2022-01-06] MEDS: hydrALAZINE 25 MG TAB PO SCH (08:43)
[2022-01-06] MEDS: Metoprolol Tartrate 100 MG TAB PO SCH (08:43)
[2022-01-06] MEDS: Ferrous Sulfate 325 MG TAB PO SCH (08:43)
[2022-01-06] MEDS: Multivitamin W/ Minerals 1 TAB PO SCH (08:43)
[2022-01-06] MEDS: Cholecalciferol 1,000 UNITS (25 MCG) TAB PO SCH (08:43)
[2022-01-06] MEDS: Ferrous Gluconate 324 MG TAB PO SCH (08:43)
[2022-01-06] MEDS: Tamsulosin HCl 0.4 MG CAP PO SCH (08:44)
[2022-01-06] MEDS: Senokot S 8.6-50 MG TAB PO SCH (08:44)
[2022-01-06] MEDS: HYDROcodone/Acetaminophen 10/325 mg Tablet PO PRN (08:48)
[2022-01-06 08:51] VITALS: BP 147/77; TEMP 97.6
== END 2022-01-06 11:10 | disposition home or self-care (01) | DRG 470 ==
LOC: SDC 06:31 → SURG A 09:02 → SDC 01-03 09:13
PROVIDERS: ADMIT Orthopaedic Surgery; ATTEND Orthopaedic Surgery
PROC: 0SRC0J9 Replacement of Right Knee Joint with Synthetic Substitute, Cemented, Open Approach (ICD-10-PCS; principal; 2022-01-02)
PROC: 0D9770Z Drainage of Stomach, Pylorus with Drainage Device, Via Natural or Artificial Opening (ICD-10-PCS; 2022-01-02)
DX: M17.11 Unilateral primary osteoarthritis, right knee (principal); K56.51 Intestinal adhesions [bands], with partial obstruction; K56.7 Ileus, unspecified; Z20.822 Contact with and (suspected) exposure to COVID-19; N40.1 Benign prostatic hyperplasia with lower urinary tract symptoms; R33.8 Other retention of urine; M10.9 Gout, unspecified; E03.9 Hypothyroidism, unspecified; M81.0 Age-related osteoporosis without current pathological fracture; E78.5 Hyperlipidemia, unspecified; I48.0 Paroxysmal atrial fibrillation; E66.9 Obesity, unspecified; N18.30 Chronic kidney disease, stage 3 unspecified; R19.7 Diarrhea, unspecified; E78.00 Pure hypercholesterolemia, unspecified; I12.9 Hypertensive chronic kidney disease with stage 1 through stage 4 chronic kidney disease, or unspecified chronic kidney disease; K59.00 Constipation, unspecified; Z79.82 Long term (current) use of aspirin; Z79.51 Long term (current) use of inhaled steroids; Z79.899 Other long term (current) drug therapy; Z68.31 Body mass index [BMI] 31.0-31.9, adult; Z95.0 Presence of cardiac pacemaker; Z88.1 Allergy status to other antibiotic agents
CPT/HCPCS: 36415; 74019; 74250; 80048; 80053; 80061; 80076; 82805; 83036; 83735; 83880; 84443; 85025; 85027; 87324; 87449; 93005; 93010; A4306; C1713; C1776; J0690; J1885; J1956; J2250; J2405; J2550; J2704; J2795; J3010; J3370; J3490; J7030; J7050; S0020

== ENCOUNTER 2022-06-02 12:30 | Outpatient (CLI) | payer MEDICARE, OTHER | END 2022-06-02 12:31 | disposition home or self-care (01) | LOC: ULT 12:30 | PROVIDERS: ATTEND Internal Medicine Gastroenterology | DX: R13.10 Dysphagia, unspecified (principal); R93.3 Abnormal findings on diagnostic imaging of other parts of digestive tract; K80.20 Calculus of gallbladder without cholecystitis without obstruction | CPT/HCPCS: 76705 ==

== ENCOUNTER 2023-01-02 08:56 | Outpatient (CLI) | payer MEDICARE, OTHER ==
[2023-01-02 09:54] LABS: #Basophils 0.1 10x3/uL (0.0-0.2); #Eosinphils 0.1 10x3/uL (0.0-0.5); #Monocytes 0.6 10x3/uL (0.0-1.1); #Neutrophils 3.8 10x3/uL (1.5-8.4); %Basophils 1.7 % (0.0-2.0); %Eosinophils 1.8 % (0.0-6.0); Hemoglobin 15.3 g/dL (13.5-17.5); Mean Corpuscular HGB CONC 32.8 g/dL (32.0-36.0); Mean Corpuscular Hemoglobin 25.7 pg (27.0-33.0); Mean Corpuscular Volume 78.4 fl (81.2-95.1); Mean Platelet Volume 9.2 fl (7.4-10.4); Platelet Count 152 10x3/uL (150-450); RBC Distribution Width 15.6 % (11.5-14.5); Red Blood Cell (RBC) Count 5.96 10x6/uL (4.32-5.72)
[2023-01-02 10:13] LABS: Anion Gap 16 mmol/L (10-20); BUN (Urea Nitrogen) 19 mg/dL (8.4-25.7); Calc. Creatinine Clearance 0 mL/min (70-130); Calcium 8.7 mg/dL (7.8-10.44); Carbon Dioxide 18 mmol/L (23-31); Chloride 109 mmol/L (98-107); Estimated GFR 39; Glucose 100 mg/dL (83-110); Potassium 3.8 mmol/L (3.5-5.1); Sodium 139 mmol/L (136-145)
== END 2023-01-02 08:57 | disposition home or self-care (01) ==
LOC: LABBT 08:56
PROVIDERS: ATTEND Orthopaedic Surgery Hand Surgery
DX: Z01.818 Encounter for other preprocedural examination (principal); G56.02 Carpal tunnel syndrome, left upper limb
CPT/HCPCS: 80048; 85025; 93005; 93010

== ENCOUNTER 2023-04-16 14:52 | Outpatient (CLI) | payer MEDICARE, OTHER | END 2023-04-16 14:53 | disposition home or self-care (01) | LOC: RAD 14:52 | PROVIDERS: ATTEND Internal Medicine | DX: M79.671 Pain in right foot (principal); M25.571 Pain in right ankle and joints of right foot; M19.071 Primary osteoarthritis, right ankle and foot ==

== ENCOUNTER 2024-01-11 11:28 | Emergency (ER) | payer MEDICARE, OTHER | END 2024-01-11 12:59 | disposition home or self-care (01) | LOC: ERS 11:28 | DX: S93.431A Sprain of tibiofibular ligament of right ankle, initial encounter (principal); I11.0 Hypertensive heart disease with heart failure; I50.9 Heart failure, unspecified; I48.91 Unspecified atrial fibrillation; E03.9 Hypothyroidism, unspecified; E78.00 Pure hypercholesterolemia, unspecified; M10.9 Gout, unspecified; X58.XXXA Exposure to other specified factors, initial encounter; Z79.82 Long term (current) use of aspirin; Z79.899 Other long term (current) drug therapy ==

== ENCOUNTER 2024-05-23 10:50 | Outpatient (CLI) | payer MEDICARE, OTHER | END 2024-05-23 10:51 | disposition home or self-care (01) | LOC: BICRAD 10:50 | PROVIDERS: ATTEND Internal Medicine | DX: M54.50 Low back pain, unspecified (principal); R06.00 Dyspnea, unspecified; M47.816 Spondylosis without myelopathy or radiculopathy, lumbar region; M25.78 Osteophyte, vertebrae; I70.0 Atherosclerosis of aorta; Z98.890 Other specified postprocedural states; D64.9 Anemia, unspecified; R73.01 Impaired fasting glucose; R06.09 Other forms of dyspnea; Z79.899 Other long term (current) drug therapy | CPT/HCPCS: 36415; 71046; 72100; 80053; 82607; 82728; 82746; 83036; 83540; 83550; 85025 ==

== ENCOUNTER 2024-08-08 08:36 | Outpatient (CLI) | payer MEDICARE, OTHER | END 2024-08-08 08:37 | disposition home or self-care (01) | LOC: MRI 08:36 | PROVIDERS: ATTEND Internal Medicine | DX: M51.369 Other intervertebral disc degeneration, lumbar region without mention of lumbar back pain or lower extremity pain (principal); M48.061 Spinal stenosis, lumbar region without neurogenic claudication; M48.07 Spinal stenosis, lumbosacral region | CPT/HCPCS: 71046; 72148 ==

== ENCOUNTER 2025-03-26 09:36 | Outpatient (CLI) | payer MEDICARE, OTHER ==
[2025-03-26 10:47] LABS: #Basophils 0.10 10x3/uL (0.0-0.2); #Eosinophils 0.23 10x3/uL (0.0-0.7); #Monocytes 0.66 10x3/uL (0.11-0.59); #Neutrophils 3.97 10x3/uL (1.40-6.50); %Basophils 1.6 % (0.0-1.0); %Eosinophils 3.6 % (0.0-10.0); %Lymphocytes 22.5 % (21.0-51.0); %Monocytes 10.2 % (0.0-10.0); %Neutrophils 61.6 % (42.0-75.0); Hematocrit 39.6 % (42.0-52.0); Hemoglobin 12.4 g/dL (14.0-18.0); Mean Corpuscular Hemoglobin 24.9 pg (27.0-31.0); Mean Corpuscular Volume 79.7 fL (78.0-98.0); Platelet Count 179 10x3/uL (130-400); Red Blood Cell (RBC) Count 4.97 mill/uL (4.70-6.10); White Blood Cell (WBC) Count 6.44 10x3/uL (4.8-10.8)
[2025-03-26 11:07] LABS: INR-International Normal Ratio 1.6; PTT 35.0 sec (22.9-36.1); Prothrombin Time 18.7 sec (12.0-14.7)
[2025-03-26 11:31] LABS: ALT (SGPT) 23 U/L (Less than 45); AST (SGOT) 19 U/L (11-34); Albumin 4.2 g/dL (3.1-4.5); Alkaline Phosphatase 82 U/L (40-110); Anion Gap 13 mmol/L (10-20); BUN (Urea Nitrogen) 27 mg/dL (8.4-25.7); Bilirubin, Total 0.6 mg/dL (0.3-1.2); Calc. Creatinine Clearance 0 mL/min (70-130); Calcium 8.7 mg/dL (7.8-10.44); Carbon Dioxide 22 mmol/L (23-31); Chloride 105 mmol/L (98-107); Globulin 2.2 g/dL (2.4-3.5); Glucose 95 mg/dL (83-110); Potassium 3.6 mmol/L (3.5-5.1); Sodium 136 mmol/L (136-145)
[2025-03-27 09:14] LABS: Myoglobin, Serum 71 ng/mL (28-72)
== END 2025-03-26 09:37 | disposition home or self-care (01) ==
LOC: LABBT 09:36
PROVIDERS: ATTEND Internal Medicine Cardiovascular Disease
DX: Z01.818 Encounter for other preprocedural examination (principal); I48.19 Other persistent atrial fibrillation
CPT/HCPCS: 80053; 83010; 83051; 83874; 85025; 85610; 85730; 86850; 86900; 86901; 93005; 93010

== ENCOUNTER 2025-03-31 05:58 | Day surgery (SDC) | payer MEDICARE, OTHER ==
[2025-03-26 09:56] VITALS: BMI 32.8
[2025-03-31] MEDS ORDERED: Heparin 10,000 UNITS/ 10 ML VIAL ONE (06:45)
[2025-03-31] MEDS ORDERED: Ondansetron PF 4 MG/2 ML Vial ONE (07:15)
[2025-03-31] MEDS ORDERED: PROPOFOL 20 ML ONE (07:15)
[2025-03-31] MEDS ORDERED: GLYCOPYRROLATE/PF 0.2 MG/ML VIAL ONE (07:15)
[2025-03-31] MEDS ORDERED: fentaNYL PF 100 MCG/2 ML SYRINGE ONE (07:16)
[2025-03-31] MEDS ORDERED: PHENYLEPHRINE-NS 100 MCG/ML 10 ML SYRINGE ONE (07:16)
[2025-03-31] MEDS ORDERED: Rocuronium Bromide 10 MG/ML (10ML VIAL) ONE (07:16)
[2025-03-31] MEDS ORDERED: Isoproterenol 0.2 MG/1 ML AMP ONE (07:31)
[2025-03-31] MEDS ORDERED: SUGAMMADEX SODIUM 200 MG/2 ML VIAL ONE (10:58)
== END 2025-03-31 16:00 | disposition home or self-care (01) ==
LOC: SDC 05:58
PROVIDERS: ATTEND Internal Medicine Cardiovascular Disease
PROC: 4A023FZ Measurement of Cardiac Rhythm, Percutaneous Approach (ICD-10-PCS; principal; 2025-03-31)
PROC: 02583ZZ Destruction of Conduction Mechanism, Percutaneous Approach (ICD-10-PCS; 2025-03-31)
DX: I48.19 Other persistent atrial fibrillation (principal); I48.3 Typical atrial flutter; I11.0 Hypertensive heart disease with heart failure; I50.30 Unspecified diastolic (congestive) heart failure; I25.10 Atherosclerotic heart disease of native coronary artery without angina pectoris; G47.33 Obstructive sleep apnea (adult) (pediatric); Z95.0 Presence of cardiac pacemaker; Z96.651 Presence of right artificial knee joint; Z98.890 Other specified postprocedural states; Z88.1 Allergy status to other antibiotic agents
CPT/HCPCS: 85347 ×2; 86850; 86900; 86901; 93623; 93656; 93657; C1730 ×2; C1733; C1759; C1760 ×2; C1766; C1769; C1893; C1894; J1100; J1644 ×2; J2405; J2704; J2720; J3010; J3490; 93005; 93010

== ENCOUNTER 2025-05-07 11:35 | Inpatient (IN) | payer MEDICARE, OTHER ==
[~2025-05-07 11:35] MED LIST changes: -Diprivan 40 ML ONE; +Iopamidol-370 76% 500 ML MDV (1 ML CHARGE) ONE; -Lidocaine 1% PF 5 ML VIAL ONE
[2025-05-07 12:14] LABS: #Basophils 0.05 10x3/uL (0.0-0.2); #Eosinophils 0.16 10x3/uL (0.0-0.7); #Monocytes 0.69 10x3/uL (0.11-0.59); #Neutrophils 4.37 10x3/uL (1.40-6.50); %Basophils 0.8 % (0.0-1.0); %Eosinophils 2.5 % (0.0-10.0); %Lymphocytes 17.9 % (21.0-51.0); %Monocytes 10.6 % (0.0-10.0); %Neutrophils 66.8 % (42.0-75.0); Hematocrit 23.0 % (42.0-52.0); Hemoglobin 7.3 g/dL (14.0-18.0); Mean Corpuscular Hemoglobin 25.3 pg (27.0-31.0); Mean Corpuscular Volume 79.6 fL (78.0-98.0); Platelet Count 146 10x3/uL (130-400); Red Blood Cell (RBC) Count 2.89 mill/uL (4.70-6.10); White Blood Cell (WBC) Count 6.53 10x3/uL (4.8-10.8)
[2025-05-07 12:31] LABS: ALT (SGPT) 21 U/L (Less than 45); AST (SGOT) 21 U/L (11-34); Albumin 3.3 g/dL (3.1-4.5); Alkaline Phosphatase 80 U/L (40-110); Anion Gap 16 mmol/L (10-20); BUN (Urea Nitrogen) 33 mg/dL (8.4-25.7); Bilirubin, Total 0.3 mg/dL (0.3-1.2); Calc. Creatinine Clearance 0 mL/min (70-130); Calcium 8.6 mg/dL (7.8-10.44); Carbon Dioxide 18 mmol/L (23-31); Chloride 108 mmol/L (98-107); Globulin 2.2 g/dL (2.4-3.5); Glucose 95 mg/dL (83-110); Magnesium 1.7 mg/dL (1.6-2.6); Potassium 3.5 mmol/L (3.5-5.1); Sodium 138 mmol/L (136-145)
[2025-05-07] MEDS ORDERED: Pantoprazole 40 MG VIAL ONE (12:44)
[2025-05-07 15:54] LABS: INR-International Normal Ratio 2.1; PTT 36.8 sec (22.9-36.1); Prothrombin Time 23.3 sec (12.0-14.7)
[2025-05-07] MEDS ORDERED: Glucagon 1 MG/ML KIT IM PRN (17:03)
[2025-05-07] MEDS ORDERED: Dextrose 50% Abboject 50 ML SYRINGE SLOW IVP PRN (17:03)
[2025-05-07] MEDS: Magnesium 2 GM/50 ML(in water) 2 GM in Premix 1 BAG IVPB SCH (18:01)
[2025-05-07] MEDS ORDERED: Magnesium 2 GM/50 ML BAG (IN WATER) ONE (18:02)
[2025-05-07 19:33] LABS: Hematocrit 28.4 % (42.0-52.0); Hemoglobin 8.8 g/dL (14.0-18.0)
[2025-05-08 04:10] LABS: #Basophils 0.05 10x3/uL (0.0-0.2); #Eosinophils 0.19 10x3/uL (0.0-0.7); #Monocytes 0.67 10x3/uL (0.11-0.59); #Neutrophils 4.29 10x3/uL (1.40-6.50); %Basophils 0.8 % (0.0-1.0); %Eosinophils 3.0 % (0.0-10.0); %Lymphocytes 16.7 % (21.0-51.0); %Monocytes 10.5 % (0.0-10.0); %Neutrophils 67.4 % (42.0-75.0); Hematocrit 26.8 % (42.0-52.0); Hemoglobin 8.2 g/dL (14.0-18.0); Mean Corpuscular Hemoglobin 25.5 pg (27.0-31.0); Mean Corpuscular Volume 83.5 fL (78.0-98.0); Platelet Count 149 10x3/uL (130-400); Red Blood Cell (RBC) Count 3.21 mill/uL (4.70-6.10); White Blood Cell (WBC) Count 6.36 10x3/uL (4.8-10.8)
[2025-05-08 04:27] LABS: Anion Gap 14 mmol/L (10-20); BUN (Urea Nitrogen) 28 mg/dL (8.4-25.7); Calc. Creatinine Clearance 57 mL/min (70-130); Calcium 8.5 mg/dL (7.8-10.44); Carbon Dioxide 21 mmol/L (23-31); Chloride 109 mmol/L (98-107); Glucose 98 mg/dL (83-110); Potassium 3.5 mmol/L (3.5-5.1); Sodium 140 mmol/L (136-145)
[2025-05-08] MEDS ORDERED: Pantoprazole 40 MG VIAL IVP SCH (09:00)
[2025-05-08] MEDS ORDERED: PROPOFOL 20 ML ONE ×2 (09:50→10:34)
[2025-05-08] MEDS ORDERED: GLYCOPYRROLATE/PF 0.2 MG/ML VIAL ONE (09:52)
[2025-05-08] MEDS ORDERED: PHENYLEPHRINE-NS 100 MCG/ML 10 ML SYRINGE ONE (10:29)
[2025-05-08] MEDS: Calcitriol 0.25 MCG CAP PO SCH (11:44)
[2025-05-08] MEDS: Pantoprazole 40 MG VIAL IVP SCH (11:45)
[2025-05-08] MEDS: Rosuvastatin 20 MG TAB PO SCH (20:30)
[2025-05-09 04:38] LABS: Hematocrit 25.5 % (42.0-52.0); Hemoglobin 7.8 g/dL (14.0-18.0); Mean Corpuscular Hemoglobin 25.7 pg (27.0-31.0); Mean Corpuscular Volume 83.9 fL (78.0-98.0); Platelet Count 136 10x3/uL (130-400); Red Blood Cell (RBC) Count 3.04 mill/uL (4.70-6.10); White Blood Cell (WBC) Count 5.63 10x3/uL (4.8-10.8)
[2025-05-09 04:59] LABS: Anion Gap 14 mmol/L (10-20); BUN (Urea Nitrogen) 20 mg/dL (8.4-25.7); Calc. Creatinine Clearance 64 mL/min (70-130); Calcium 8.6 mg/dL (7.8-10.44); Carbon Dioxide 21 mmol/L (23-31); Chloride 107 mmol/L (98-107); Glucose 98 mg/dL (83-110); Potassium 3.5 mmol/L (3.5-5.1); Sodium 138 mmol/L (136-145)
[2025-05-09 05:46] VITALS: BMI 31.2
[2025-05-09] MEDS: Acetaminophen 325 MG TAB PO PRN (14:45)
[2025-05-09 18:41] LABS: Hematocrit 30.4 % (42.0-52.0); Hemoglobin 9.5 g/dL (14.0-18.0)
[2025-05-10 04:08] LABS: Hematocrit 29.0 % (42.0-52.0); Hemoglobin 9.2 g/dL (14.0-18.0); Mean Corpuscular Hemoglobin 26.1 pg (27.0-31.0); Mean Corpuscular Volume 82.4 fL (78.0-98.0); Platelet Count 142 10x3/uL (130-400); Red Blood Cell (RBC) Count 3.52 mill/uL (4.70-6.10); White Blood Cell (WBC) Count 6.08 10x3/uL (4.8-10.8)
[2025-05-10 04:37] LABS: INR-International Normal Ratio 1.0; Prothrombin Time 13.7 sec (12.0-14.7)
[2025-05-10 08:26] VITALS: TEMP 98
[2025-05-10 08:30] VITALS: BP 123/66
[2025-05-10] MEDS ORDERED: Aspirin 81 mg Enteric Coated Tablet PO SCH (09:30)
== END 2025-05-10 12:20 | disposition home or self-care (01) | DRG 394 ==
LOC: ERS 11:35 → ERHOLD 15:17 → 2SE 18:41
PROVIDERS: ADMIT Internal Medicine; ATTEND Internal Medicine
PROC: 0DB68ZX Excision of Stomach, Via Natural or Artificial Opening Endoscopic, Diagnostic (ICD-10-PCS; principal; 2025-05-08)
PROC: 30233N1 Transfusion of Nonautologous Red Blood Cells into Peripheral Vein, Percutaneous Approach (ICD-10-PCS; 2025-05-09)
DX: K31.7 Polyp of stomach and duodenum (principal); C64.9 Malignant neoplasm of unspecified kidney, except renal pelvis; D62 Acute posthemorrhagic anemia; I13.0 Hypertensive heart and chronic kidney disease with heart failure and stage 1 through stage 4 chronic kidney disease, or unspecified chronic kidney disease; I50.32 Chronic diastolic (congestive) heart failure; K25.9 Gastric ulcer, unspecified as acute or chronic, without hemorrhage or perforation; E78.5 Hyperlipidemia, unspecified; I48.91 Unspecified atrial fibrillation; E11.51 Type 2 diabetes mellitus with diabetic peripheral angiopathy without gangrene; E11.22 Type 2 diabetes mellitus with diabetic chronic kidney disease; E03.9 Hypothyroidism, unspecified; I77.6 Arteritis, unspecified; N18.30 Chronic kidney disease, stage 3 unspecified; L81.4 Other melanin hyperpigmentation; I49.8 Other specified cardiac arrhythmias; I49.5 Sick sinus syndrome; Z88.1 Allergy status to other antibiotic agents; Z95.0 Presence of cardiac pacemaker; Z79.899 Other long term (current) drug therapy; Z79.890 Hormone replacement therapy
CPT/HCPCS: 36415; 36416; 36430; 71045; 74177; 80048; 80053; 82728; 83540; 83550; 83735; 84484; 85025; 85027; 85610; 85730; 86850; 86900; 86901; 88305; 93005; 96374; J2470; J2704; J3475; J3490; P9016; Q9967